=== PATIENT | female | born 1985 | race Caucasian/White ===

== ENCOUNTER 2017-04-07 19:38 | Emergency (ER) | payer BC, OTHER ==
[2017-04-07 19:44] VITALS: RESP 18
--- NOTE | 2017-04-07 20:09 | ED ---
General Adult HPI - General Chief complaint: Abdominal Pain Stated complaint: and cramping 14wks Time Seen by Provider: 04/07/17 19:51 Source: patient, RN notes reviewed Mode of arrival: ambulatory Limitations: no limitations - History of Present Illness Initial comments: 32-year-old female presents to the emergency department with a chief complaint of abdominal cramping and . Patient is . She states that she is always had a little bit of some lower pelvic pain in this but now she states she's had more constant pain sometimes it stabbing sometimes it's cramping. Discharge or bleeding with this pain. She denies any back pain with this. She denies any nausea or vomiting. She had ultrasound at 7 weeks that showed normal progression. They were concerned due to her continued cramping and pain so she thought that she should be seen.Patient denies any recent fever , chills, shortness of breath, chest pain, back pain, nausea vomiting, numbness or tingling, dysuria or hematuria, constipation or diarrhea, headaches or visual changes, or any other current symptoms. - Related Data Home Medications Medication Instructions Recorded Confirmed Nitrofurantoin Monohyd/M-Cryst 100 mg PO Q12HR 04/07/17 04/07/17 [Macrobid] Pedi Multivit No.25/Folic Acid 1 tab PO DAILY 04/07/17 04/07/17 [Flintstones Multivit Chew Tab] Allergies Allergy/AdvReac Type Severity Reaction Status Date / Time codeine AdvReac Nausea & Verified 04/07/17 20:20 Vomiting Review of Systems ROS Statement: Those systems with pertinent positive or pertinent negative responses have been documented in the HPI. ROS Other: All systems not noted in ROS Statement are negative. Past Medical History Past Medical History: No Reported History History of Any Multi-Drug Resistant Organisms: None Reported, MRSA Date of last positivie culture/infection: 2013 MDRO Source:: nose Past Surgical History: Appendectomy Additional Past Surgical History / Comment(s): D&C Past Anesthesia/Blood Transfusion Reactions: No Reported Reaction Past Psychological History: No Psychological Hx Reported Smoking Status: Never smoker Past Alcohol Use History: None Reported Past Drug Use History: None Reported - Past Family History Mother Additional Family Medical History / Comment(s): Lupus General Exam - General Exam Comments Initial Comments: General: The patient is awake and alert, in no distress, and does not appear acutely ill. Eye: Pupils are equal, round and reactive to light. Ears, nose, mouth and throat: There are moist mucous membranes. Neck: The neck is supple, there is no tenderness. Cardiovascular: There is a regular rate and rhythm. No murmur, rub or gallop is appreciated. Respiratory: Lungs are clear to auscultation, respirations are non-labored, breath sounds are equal. No wheezes, stridor, rales, or rhonchi. Gastrointestinal: Soft, non-distended, non-tender abdomen without masses or organomegaly noted. There is no rebound or guarding present. No CVA tenderness. Bowel sounds are unremarkable. Back: There is no tenderness to palpation in the midline. There is no obvious deformity. No rashes noted. Musculoskeletal: Normal ROM, no tenderness, There is no pedal edema. There is no calf tenderness or swelling. Sensation intact. Pulses equal bilaterally 2+. Neurological: CN II-XII intact, There are no obvious motor or sensory deficits. Coordination appears grossly intact. Speech is normal. Skin: Skin is warm and dry and no rashes or lesions are noted. Psychiatric: Cooperative, appropriate mood & affect, normal judgment. Limitations: no limitations Course Vital Signs 04/07/17 19:40 Temperature 97.2 F L Pulse Rate 91 Respiratory 18 Rate Blood Pressure 154/72 O2 Sat by Pulse 100 Oximetry Medical Decision Making - Medical Decision Making 32-year-old female presents to the emergency Department chief complaint of abdominal cramping and . At this time patient's lab work and ultrasound results have been reviewed. We discussed the pelvic she states she' ll follow-up with her [facility] for this. At this time there does appear to be a normal ultrasound. We did discuss return parameters we did discuss possible outcomes. We did discuss all questions. Patient stated that she understood and she is in agreement this plan. All questions have been answered. She will be discharged. - Lab Data Result diagrams: 04/07/17 20:20 04/07/17 20:20 Lab Results 04/07/17 04/07/17 04/07/17 Range/Units 20:20 20:20 20:20 WBC 10.1 (3.8-10.6) k/uL RBC 3.61 L (3.80-5.40) m/uL Hgb 11.1 L (11.4-16.0) gm/dL Hct 32.5 L (34.0-46.0) % MCV 90.0 (80.0-100.0) fL MCH 30.7 (25.0-35.0) pg MCHC 34.1 (31.0-37.0) g/dL RDW 13.4 (11.5-15.5) % Plt Count 372 (150-450) k/uL Neutrophils % 66 % Lymphocytes % 24 % Monocytes % 6 % Eosinophils % 2 % Basophils % 0 % Neutrophils # 6.7 (1.3-7.7) k/uL Lymphocytes # 2.5 (1.0-4.8) k/uL Monocytes # 0.6 (0-1.0) k/uL Eosinophils # 0.2 (0-0.7) k/uL Basophils # 0.0 (0-0.2) k/uL Sodium 135 L (137-145) mmol/L Potassium 4.0 (3.5-5.1) mmol/L Chloride 103 (98-107) mmol/L Carbon Dioxide 24 (22-30) mmol/L Anion Gap 8 mmol/L BUN 14 (7-17) mg/dL Creatinine 0.76 (0.52-1.04) mg/dL Est GFR (MDRD) Af Amer >60 (>60 ml/min/1.73 sqM) Est GFR (MDRD) Non-Af >60 (>60 ml/min/1.73 sqM) Glucose 89 (74-99) mg/dL Calcium 9.3 (8.4-10.2) mg/dL Total Bilirubin 0.1 L (0.2-1.3) mg/dL AST 18 (14-36) U/L ALT 25 (9-52) U/L Alkaline Phosphatase 57 (38-126) U/L Total Protein 6.5 (6.3-8.2) g/dL Albumin 3.4 L (3.5-5.0) g/dL HCG, Quant 77997.9 mIU/mL Urine Color Urine Appearance (Clear) Urine pH (5.0-8.0) Ur Specific [place] (1.001-1.035) Urine Protein (Negative) Urine Glucose (UA) (Negative) Urine Ketones (Negative) Urine Blood (Negative) Urine Nitrite (Negative) Urine Bilirubin (Negative) Urine Urobilinogen (<2.0) mg/dL Ur Leukocyte Esterase (Negative) Urine RBC (0-5) /hpf Urine WBC (0-5) /hpf Ur Squamous Epith Cells (0-4) /hpf Urine Mucus (None) /hpf Blood Type A Positive Blood Type Recheck No 04/07/17 Range/Units 20:20 WBC (3.8-10.6) k/uL RBC (3.80-5.40) m/uL Hgb (11.4-16.0) gm/dL Hct (34.0-46.0) % MCV (80.0-100.0) fL MCH (25.0-35.0) pg MCHC (31.0-37.0) g/dL RDW (11.5-15.5) % Plt Count (150-450) k/uL Neutrophils % % Lymphocytes % % Monocytes % % Eosinophils % % Basophils % % Neutrophils # (1.3-7.7) k/uL Lymphocytes # (1.0-4.8) k/uL Monocytes # (0-1.0) k/uL Eosinophils # (0-0.7) k/uL Basophils # (0-0.2) k/uL Sodium (137-145) mmol/L Potassium (3.5-5.1) mmol/L Chloride (98-107) mmol/L Carbon Dioxide (22-30) mmol/L Anion Gap mmol/L BUN (7-17) mg/dL Creatinine (0.52-1.04) mg/dL Est GFR (MDRD) Af Amer (>60 ml/min/1.73 sqM) Est GFR (MDRD) Non-Af (>60 ml/min/1.73 sqM) Glucose (74-99) mg/dL Calcium (8.4-10.2) mg/dL Total Bilirubin (0.2-1.3) mg/dL AST (14-36) U/L ALT (9-52) U/L Alkaline Phosphatase (38-126) U/L Total Protein (6.3-8.2) g/dL Albumin (3.5-5.0) g/dL HCG, Quant mIU/mL Urine Color Yellow Urine Appearance Cloudy H (Clear) Urine pH 5.5 (5.0-8.0) Ur Specific [place] 1.031 (1.001-1.035) Urine Protein Trace H (Negative) Urine Glucose (UA) Negative (Negative) Urine Ketones Negative (Negative) Urine Blood Negative (Negative) Urine Nitrite Negative (Negative) Urine Bilirubin Negative (Negative) Urine Urobilinogen <2.0 (<2.0) mg/dL Ur Leukocyte Esterase Negative (Negative) Urine RBC 1 (0-5) /hpf Urine WBC 3 (0-5) /hpf Ur Squamous Epith Cells 7 H (0-4) /hpf Urine Mucus Few H (None) /hpf Blood Type Blood Type Recheck - Radiology Data Radiology results: report reviewed, image reviewed Disposition Clinical Impression: Abdominal pain affecting Disposition: HOME SELF-CARE Condition: Stable Instructions: Abdominal Pain in (ED) Additional Instructions: Please use medication as discussed. Please follow up with family doctor if symptoms have not improved over the next two days. Please return to the emergency room if your symptoms increase or worsen or for any other concerns. Referrals: Kiara Burrows MD [Primary Care Provider] - 1-2 days Time of Disposition: 21:57
[2017-04-07 20:30] LABS: Basophils % (A) 0 %; Eosinophils # (A) 0.2 k/uL (0-0.7); Eosinophils % (A) 2 %; HCT 32.5 % (34.0-46.0); HGB 11.1 gm/dL (11.4-16.0); Lymphocytes # (A) 2.5 k/uL (1.0-4.8); Lymphocytes % (A) 24 %; MCH 30.7 pg (25.0-35.0); MCHC 34.1 g/dL (31.0-37.0); Mean Platelet Volume 7.3; Monocytes # (A) 0.6 k/uL (0-1.0); Monocytes % (A) 6 %; Neutrophils # (A) 6.7 k/uL (1.3-7.7); Neutrophils % (A) 66 %; Platelet Count 372 k/uL (150-450); RBC 3.61 m/uL (3.80-5.40); RDW 13.4 % (11.5-15.5); WBC 10.1 k/uL (3.8-10.6)
[2017-04-07 20:34] LABS: Appearance,Urine Cloudy (Clear); Bilirubin,Urine Negative (Negative); Blood,Urine Negative (Negative); Color,Urine Yellow; Glucose,Urine (UA) Negative (Negative); Ketones,Urine Negative (Negative); Leukocyte Esterase,Urine Negative (Negative); Mucus,Urine Few /hpf; Nitrite,Urine Negative (Negative); PH, Urine 5.5 (5.0-8.0); Protein,Urine Trace (Negative); RBC,Urine 1 /hpf (0-5); Specific Gravity,Urine 1.031 (1.001-1.035); Squamous Epithelial Cell,Urine 7 /hpf (0-4); Urobilinogen,Urine <2.0 mg/dL (<2.0); WBC,Urine 3 /hpf (0-5)
[2017-04-07 20:39] LABS: ALT 25 U/L (9-52); AST 18 U/L (14-36); Albumin 3.4 g/dL (3.5-5.0); Alkaline Phosphatase 57 U/L (38-126); Anion Gap 8 mmol/L; Blood Urea Nitrogen 14 mg/dL (7-17); Calcium 9.3 mg/dL (8.4-10.2); Carbon Dioxide 24 mmol/L (22-30); Chloride 103 mmol/L (98-107); Glucose 89 mg/dL (74-99); Sodium 135 mmol/L (137-145); Total Bilirubin 0.1 mg/dL (0.2-1.3); Total Protein 6.5 g/dL (6.3-8.2)
[2017-04-07 21:21] LABS: HCG,Quantitative Serum 35491.9 mIU/mL
--- NOTE | 2017-04-07 21:49 | US ---
EXAMINATION TYPE: US OB >= 14 wk fetus DATE OF EXAM: 04/07/2017 COMPARISON: None CLINICAL HISTORY: PainPelvic cramping x few days, 4, para 1, miscarriage 2, obese patient. TECHNIQUE: Transabdominal (TA) GESTATIONAL AGE / DATING Physician Established: (14 weeks/3 days) EDC: 10/03/2017 Dates by LMP: (14 weeks/3 days) EDC: 10/03/2017 Dates by First Scan: No previous here Dates by Current Scan: (15 weeks/3 days) EDC: 09/26/2017 SURVEY IUP: Single PLACENTA: Posterior PREVIA: Low Lying: tip of placenta 1.4cm from internal cervical os MARQUISE: 11.9 cm Normal CERVICAL LENGTH (transabdominal: norm > 3.0cm): 3.6 cm BIOMETRY PRESENTATION: Breech LIE: Transverse with head maternal Left BPD: 3.0 cm 15 weeks / 3 days HC: 10.9 cm 15 weeks / 2 days AC: 9.5 cm 15 weeks / 4 days FL: 1.7 cm 14 weeks / 6 days ESTIMATED WEIGHT IN GRAMS: 119 grams ESTIMATED WEIGHT IN LBS/OZ: 0 lbs. 4 oz. WEIGHT PERCENTAGE BASED ON ESTABLISHED DATES: 90% HC/AC: 1.14 Normal FL/AC: 17.41 HEART RATE: 151 bpm RHYTHM: Normal MATERNAL WALL MEASUREMENT: 4.1 cm from skin to anterior uterine wall (if exam limited due to body hab itus). IMPRESSION: VIABLE SINGLE IUP MEASURING 15 WEEKS 3 DAYS WITH A HEART RATE OF 151BPM AND AN ESTIMATED DELIVERY GERDA E OF 09/26/2017.
[2017-04-07 22:06] VITALS: BP 115/57; PULSE 89; TEMP 97.1
== END 2017-04-07 22:06 | disposition home or self-care (01) ==
LOC: EC 19:38
DX: O26.891 Other specified pregnancy related conditions, first trimester (principal); R10.2 Pelvic and perineal pain; Z3A.01 Less than 8 weeks gestation of pregnancy; Z86.14 Personal history of Methicillin resistant Staphylococcus aureus infection; Z79.899 Other long term (current) drug therapy; Z88.5 Allergy status to narcotic agent; Z98.890 Other specified postprocedural states
CPT/HCPCS: 36415; 76805; 80053; 81001; 84702; 85025; 86900; 86901; 87086; 99284

== ENCOUNTER 2017-08-26 07:52 | Outpatient (CLI) | payer BC, OTHER ==
[2017-08-26 09:06] VITALS: BP 138/71; PULSE 80; RESP 16; TEMP 97.9
--- NOTE | 2017-10-10 12:15 | P.MSEPDOC ---
Presenting Problems - Arrival Data Date of Arrival on Unit: 08/26/17 Time of Arrival on Unit: 08:00 Mode of Transport: Wheelchair - Complaint OB-Reason for Admission/Chief Complaint: Visual Disturbances, Pain Comment: dizzy at work this am. also having back pain that comes and goes. pain scale=3-4. Medical History - Information : 4 Para: 1 Term: 1 : 0 Abortions: Spontaneous or Elective: 2 Number of Living Children: 1 - Gestational Age Gestational Age by ARIADNE (wks/days): 35 Weeks and 4 Days Review of Systems - Review of Systems Constitutional: No problems Breast: No problems ENT: No problems Cardiovascular: No problems Respiratory: No problems Gastrointestinal: No problems Genitourinary: No problems Musculoskeletal: No problems Neurological: No problems Skin: No problems Comment: repeat ceserean section planned Vital Signs - Temperature Temperature: 97.9 F Temperature Source: Oral - Pulse Right Radial Pulse Rate: 80 Pulse Assessment Method: Automatic Cuff - Respirations Respiratory Rate: 16 Oxygen Delivery Method: Room Air O2 Sat by Pulse Oximetry: 99 - Blood Pressure Right Arm Blood Pressure: 138/71 Blood Pressure Mean: 93 Blood Pressure Source: Automatic Cuff Medical Screen Scoring (Pre) - Cervical Exam Dilation: 0 cm = 0 Membranes: Intact - Uterine Contractions Frequency: > 5 minutes apart = 1 Duration: > 40 seconds = 2 Intensity: N/A - Maternal Vital Signs Maternal Temperature: N/A Maternal Blood Pressure: N/A Signs of Preeclampsia: N/A Maternal Respirations: N/A - Pain Assessment Pain Location and Character: Back Pain Scale Used: Numeric (1 - 10) Pain Intensity: 4 Pain Description: Aching Pain Frequency: Intermittent Pain Duration Units: Days Pain Behavior: Vocalization Pain Aggravating Factors: Activity - Maternal Trauma Maternal Trauma: N/A - Assessment Heart Rate - NICHD Category: Category I (Normal) = 0 NST: Reactive Position: N/A Station: N/A - Total Score Total Score (Pre): 3 - Level of Risk Level of Risk: Low (0-5) Physician Notification (Pre) - Physician Notified Physician Notified Date: 08/26/17 Physician Notified Time: 08:45 Physician/Practitioner Notifed:: amie Spoke With: amie New Order Received: Yes (discharge instructions) - Notification Comment Comment: home to rest. drink lots of fluids, pelvic rest and off work today. may return if feeling better tomorrow. keep next scheduled appt with dr castillo on monday Disposition - Disposition OB Disposition: Discharge to home Discharge Date: 08/26/17 Discharge Time: 08:57 I agree with the RN Medical Screening Exam: Yes Risk & Benefit of care provided described in d/c instruction: Yes Diagnosis: RELATED CONDITIONS, UNSPECIFIED, THIRD TRIMESTER
== END 2017-08-26 08:57 | disposition home or self-care (01) ==
LOC: FBPOP 07:52
PROVIDERS: ATTEND Obstetrics & Gynecology
DX: O26.93 Pregnancy related conditions, unspecified, third trimester (principal); Z3A.35 35 weeks gestation of pregnancy
CPT/HCPCS: 59025; 99213

== ENCOUNTER 2017-09-06 12:07 | Outpatient (CLI) | payer BC, OTHER ==
[2017-09-06 13:17] VITALS: BP 138/70; PULSE 92; RESP 18; TEMP 96.9
--- NOTE | 2017-09-08 10:06 | P.MSEPDOC ---
Presenting Problems - Arrival Data Date of Arrival on Unit: 09/06/17 Time of Arrival on Unit: 12:10 Mode of Transport: Ambulatory - Complaint OB-Reason for Admission/Chief Complaint: Possible Onset of Labor Comment: 36 1/7 weeks. irreg contracctions/irritability noted on fm. abd soft to palp. denies leaking or bleeding or show. states some diacharge. 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 encouraged fluid intake and staying out of heat and in air cond. if poss. sched to work tomorrow and sat as her last days and then off for two weeks before sched r c/s with tl on 09/26/17 Medical History - Information : 4 Para: 1 Term: 1 : 0 Abortions: Spontaneous or Elective: 2 Number of Living Children: 1 - Gestational Age Gestational Age by ARIADNE (wks/days): 37 Weeks and 1 Days - History Complications: Prior Review of Systems - Review of Systems Constitutional: No problems Breast: No problems ENT: No problems Cardiovascular: No problems Respiratory: No problems Gastrointestinal: No problems Genitourinary: No problems Musculoskeletal: No problems Neurological: No problems Skin: No problems Vital Signs - Temperature Temperature: 96.9 F Temperature Source: Temporal Artery Scan - Pulse Right Brachial Pulse Rate: 92 Pulse Assessment Method: Automatic Cuff - Respirations Respiratory Rate: 18 Oxygen Delivery Method: Room Air O2 Sat by Pulse Oximetry: 98 - Blood Pressure Right Arm Blood Pressure: 138/70 Blood Pressure Mean: 92 Medical Screen Scoring (Pre) - Cervical Exam Dilation: 0 cm = 0 Membranes: Intact - Uterine Contractions Frequency: Scheduled / = 6 - Maternal Vital Signs Maternal Temperature: N/A Maternal Blood Pressure: N/A Signs of Preeclampsia: N/A Maternal Respirations: N/A - Pain Assessment Pain Location and Character: Lower, Abdomen Pain Scale Used: Numeric (1 - 10) Pain Intensity: 0 Pain Description: *Acute Pain Frequency: Occasional Pain Duration: 2 Pain Duration Units: Hours Pain Behavior: None Exhibited, Vocalization Pain Aggravating Factors: Activity, Contractions Non-Pharmacological Interventions: Darkened Room - Maternal Trauma Maternal Trauma: N/A - Assessment Baseline FHR: 140 Heart Rate - NICHD Category: Category I (Normal) = 0 NST: Reactive Position: N/A Station: N/A - Total Score Total Score (Pre): 6 - Level of Risk Level of Risk: Medium (6-9) Physician Notification (Pre) - Physician Notified Physician Notified Date: 09/06/17 Physician Notified Time: 12:40 Physician/Practitioner Notifed:: yes Spoke With: anna New Order Received: No - Notification Comment Comment: disch home to keep 1445 appt today. Disposition - Disposition OB Disposition: Discharge to home Discharge Date: 09/06/17 Discharge Time: 12:50 I agree with the RN Medical Screening Exam: Yes Risk & Benefit of care provided described in d/c instruction: Yes Diagnosis: FALSE LABOR BEFORE 37 COMPLETED WEEKS OF GEST, THIRD TRI
== END 2017-09-06 12:50 | disposition home or self-care (01) ==
LOC: FBPOP 12:07
PROVIDERS: ATTEND Obstetrics & Gynecology
DX: O47.1 False labor at or after 37 completed weeks of gestation (principal); Z3A.37 37 weeks gestation of pregnancy
CPT/HCPCS: 59025; 99213

== ENCOUNTER 2017-09-26 09:07 | Inpatient (IN) | payer BC, OTHER ==
[2017-09-26] MEDS ORDERED: ceFAZolin 3 GM in SODIUM CHLORIDE 0.9% 100 ML IVPB ONE (09:58)
[2017-09-26] MEDS ORDERED: CITRIC ACID-SODIUM CITRATE 15 ML CUP PO ONE (09:58)
[2017-09-26 10:12] VITALS: BMI 54.8
[2017-09-26] MEDS: LACTATED RINGERS 1,000 ML IV SCH ×2 (10:14→18:47)
[2017-09-26 10:34] LABS: Basophils % (A) 0 %; Eosinophils # (A) 0.1 k/uL (0-0.7); Eosinophils % (A) 1 %; HGB 11.5 gm/dL (11.4-16.0); Lymphocytes # (A) 2.4 k/uL (1.0-4.8); Lymphocytes % (A) 23 %; MCH 30.6 pg (25.0-35.0); MCHC 33.9 g/dL (31.0-37.0); MCV 90.1 fL (80.0-100.0); Mean Platelet Volume 7.5; Monocytes # (A) 0.6 k/uL (0-1.0); Monocytes % (A) 5 %; Neutrophils # (A) 7.4 k/uL (1.3-7.7); Neutrophils % (A) 69 %; Platelet Count 313 k/uL (150-450); RBC 3.78 m/uL (3.80-5.40); RDW 13.7 % (11.5-15.5); WBC 10.6 k/uL (3.8-10.6)
[2017-09-26] MEDS ORDERED: WATER FOR INJECTION, STERILE 10 ML VIAL IV ONE (12:17)
[2017-09-26] MEDS ORDERED: NALBUPHINE 10 MG/ML VIAL (10ML MDV) ONE (12:17)
[2017-09-26] MEDS ORDERED: ONDANSETRON 4 MG/2 ML VIAL ONE (12:17)
[2017-09-26] MEDS ORDERED: KETOROLAC 30 MG/ML 1 ML VIAL ONE (12:17)
[2017-09-26] MEDS ORDERED: MORPHINE SULFATE (PF) 0.3 MG/0.3 ML SYR ONE (12:17)
[2017-09-26] MEDS ORDERED: ePHEDrine SULFATE/0.9% NACL/PF 50 MG/5 ML SYRINGE IV ONE (12:17)
[2017-09-26] MEDS ORDERED: OXYTOCIN 10 UNIT/ML 1 ML VIAL ONE (12:17)
[2017-09-26] MEDS ORDERED: NALOXONE 0.4 MG/ML 1 ML VIAL IV PRN (13:09)
[2017-09-26] MEDS ORDERED: ZOLPIDEM 5 MG TAB PO PRN (13:09)
[2017-09-26] MEDS ORDERED: HYDROcodone/APAP 7.5-325MG 1 EACH TAB PO PRN (13:09)
[2017-09-26] MEDS ORDERED: ONDANSETRON 4 MG/2 ML VIAL IVP PRN (13:09)
[2017-09-26] MEDS ORDERED: METOCLOPRAMIDE 5 MG/ML 2 ML VIAL IVP PRN (13:09)
[2017-09-26] MEDS ORDERED: KETOROLAC 30 MG/ML 1 ML VIAL IVP PRN (13:09)
[2017-09-26] MEDS ORDERED: HYDROcodone/APAP 5-325MG 1 EACH TAB PO PRN (13:09)
[2017-09-26] MEDS ORDERED: SIMETHICONE 80 MG CHEWABLE PO PRN (13:09)
[2017-09-26] MEDS ORDERED: OXYTOCIN 20 UNITS/1000 ML NS 1,000 ML IV SCH (13:15)
--- NOTE | 2017-09-26 13:17 | P.HPOB ---
History of Present Illness H&P Date: 09/26/17 Chief Complaint: 39-0/7 weeks, previous section, undesired fertility The patient is a 32-year-old 4 para 1021 admitted at 39-0/7 weeks as established by last menstrual period and confirmed by seven-week ultrasound. She is admitted for repeat low transverse section with intraoperative bilateral tubal occlusion using Filshie clips. She has signed consent to this effect in the office. Her has been essentially uncomplicated though she is morbidly obese. During the , the fetus was noted to have bilateral full renal pelves which resolved during the , a finding consistent with a male baby. Group B strep status is negative. Obstetrical history: 4 para 1021 with 1 previous delivery for nonreassuring heart tones. Current statistics are listed in history present illness. EDC of 10/03/2017 was established by last menstrual period and confirmed by seven-week ultrasound. Laboratory workup demonstrates a blood type of A+ with a negative antibody screen. Rubella status is immune. All other laboratory workup was within normal limits. Early Glucola was normal as was second trimester Glucola. Group B strep status is negative. Gynecologic history: Unremarkable with no history of any infections to include STDs. Review of Systems Review of systems is confined to history of present illness. Past Medical History Past Medical History: No Reported History History of Any Multi-Drug Resistant Organisms: MRSA Date of last positivie culture/infection: 2013 MDRO Source:: nose Past Surgical History: Appendectomy, Section, Cholecystectomy Additional Past Surgical History / Comment(s): D&C Past Anesthesia/Blood Transfusion Reactions: Postoperative Nausea & Vomiting ( PONV) Past Psychological History: No Psychological Hx Reported Smoking Status: Never smoker Past Alcohol Use History: None Reported Past Drug Use History: None Reported - Past Family History Mother Additional Family Medical History / Comment(s): Lupus Medications and Allergies Home Medications Medication Instructions Recorded Confirmed Type Pnv No.95/Ferrous Fum/Folic AC 1 each PO DAILY 09/22/17 09/22/17 History [ Multivitamin Tablet] Allergies Allergy/AdvReac Type Severity Reaction Status Date / Time codeine Allergy Nausea & Verified 09/22/17 15:41 Vomiting diphenhydramine Allergy Nausea & Verified 09/22/17 15:40 [From Benadryl] Vomiting & panic attacks all pain medicine AdvReac Nausea & Uncoded 09/22/17 15:39 Vomiting Exam Vital Signs Temp Pulse Resp BP Pulse Ox 09/26/17 09:57 97.2 F L 69 18 136/81 98 Intake and Output 09/25/17 09/26/17 09/26/17 22:59 06:59 14:59 Other: Weight 158.757 kg In general, this is a well-developed, morbidly obese white female in no acute distress. Her heart has a regular rhythm and rate without murmur. Her lungs are clear to auscultation bilaterally in all harrison. Her abdomen is gravid, nondistended, has normal active bowel sounds, is soft, nontender, and without any palpable masses aside from uterine fundus. Her extremities are without any cyanosis, clubbing, or edema and are nontender to palpation bilaterally. Digital cervical examination is deferred. Results Result Diagrams: 09/26/17 10:15 Abnormal Lab Results - Last 24 Hours (Table) 09/26/17 Range/Units 10:15 RBC 3.78 L (3.80-5.40) m/uL Assessment and Plan (1) Family planning Current Visit: Yes Status: Acute Code(s): Z30.09 - ENCOUNTER FOR OTH GENERAL CNSL AND ADVICE ON CONTRACEPTION SNOMED Code(s): 271022595 (2) Previous section Current Visit: Yes Status: Acute Code(s): Z98.891 - HISTORY OF UTERINE SCAR FROM PREVIOUS SURGERY SNOMED Code(s): 597141443 Plan: The patient is admitted for repeat low transverse section with intraoperative bilateral tubal occlusion using Filshie clips. The risks and complications of the procedure as well as the permanent nature of tubal ligation and alternatives which are reversible in nature were discussed and the patient has understood and agreed to proceed with the procedure as outlined above.
--- NOTE | 2017-09-26 13:22 | P.OP ---
Date of Procedure: 09/26/17 Preoperative Diagnosis: #1. 39-0/7 weeks, previous section #2. Undesired fertility Postoperative Diagnosis: Same Procedure(s) Performed: #1. Repeat low transverse section #2. Intraoperative bilateral tubal occlusion with Filshie clips Anesthesia: spinal Surgeon: Jovanni Andrews Watch Repair Person #1: Krystin Da Silva Estimated Blood Loss (ml): 200 IV fluids (ml): 150 Urine output (ml): 1,000 Pathology: none sent Condition: stable Disposition: floor Operative Findings: The patient was taken to the operating room where she was delivered of a viable 9 lbs. 5 oz. baby boy with Apgars of 9 at 1 minute and 9 at 5 minutes. The placenta was delivered manually, intact, and grossly normal with a grossly normal three-vessel cord. The uterus, tubes, and ovaries were entirely normal to inspection. There was minimal scarring at any level of the abdominal wall and uterus. Description of Procedure: The patient was prepped and draped in usual fashion after spinal anesthesia was administered by the anesthesiologist. A Pfannenstiel incision was made through pre-existing scar and extended into the abdominal cavity without difficulty. The bladder was noted to be distal to the site of the intended incision was left intact without reflecting the peritoneum. A 2 cm incision was made in the transverse plane of the lower uterine segment to enter the uterus at which time copious amounts of clear fluid was noted. The incision was extended in both directions using bandage scissors. The head was delivered up and through the incision where the nose and mouth were thoroughly suctioned with bulb suction. Remainder of the infant was delivered onto the field where the cord was doubly clamped, cut, and the passed for resuscitative measures with weight and Apgars as noted above. A segment of cord was then doubly clamped, cut, and set aside should cord gases become necessary. The placenta was delivered manually and intact as above. The uterus was exteriorized and the interior cavity of uterus swept of any remaining placental or membranous fragments. The margins of the uterine incision were grasped with Marin clamps and closed in a single layer of running locking 0 chromic catgut from margin to margin. 2 small points of bleeding were made hemostatic with the Bovie. The posterior cul-de-sac was suctioned using a guard. After reaffirming at the patient desired tubal occlusion with Filshie clips, a Filshie clip was placed across the isthmic portion of the fallopian tube approximately 2-3 cm from the cornu on each side where it was firmly affixed. The uterus was replaced within the abdominal cavity and the gutters swept of any remaining blood, fluid, or clot. The incision was reexamined and any small points of bleeding made hemostatic with the Bovie. Hemostasis appeared to be excellent. The parietal peritoneum was loosely reapproximated in the layer of muscles examined and made hemostatic with the Bovie. The fascia was closed with 2 stitches of running 0 Vicryl proceeding from lateral margins to the midpoint. The subcutaneous tissues were irrigated, made hemostatic with the Bovie, and reapproximated with a running stitch of 30 plain catgut. The skin was reapproximated with a running subcuticular stitch of 4-0 Vicryl proceeding from margin to margin followed by half-inch Steri-Strips placed with Mastisol. Estimated blood loss for the entire case was approximately 200 mL. There were no complications. All sponge, instrument, and needle counts were correct. Both mother and are resting comfortably in recovery.
[2017-09-26] MEDS ORDERED: DEXAMETHASONE SOD PHOSPHATE 10 MG/ML 1 ML VIAL IV ONE (17:17)
[2017-09-26] MEDS ORDERED: SCOPOLAMINE 1.5MG/72HR PATCH TRANSDERM ONE (17:17)
[2017-09-27] MEDS: SENNOSIDES-DOCUSATE SODIUM 1 EACH TAB PO SCH ×3 (05:52→22:04)
--- NOTE | 2017-09-27 06:42 | P.PN ---
Progress Note - Text Progress Note Date: 09/27/17 Postoperative day 1 status post section under spinal anesthesia and intrathecal Duramorph for postoperative analgesia.The patient is doing well, there is mild generalized skin itching. There are no other anesthesia related complications. Further management as per the patient primary team.
[2017-09-27 09:08] LABS: Basophils % (A) 0 %; Eosinophils % (A) 0 %; HCT 29.7 % (34.0-46.0); Lymphocytes % (A) 14 %; MCH 30.1 pg (25.0-35.0); MCHC 32.7 g/dL (31.0-37.0); MCV 92.2 fL (80.0-100.0); Mean Platelet Volume 7.4; Monocytes # (A) 0.6 k/uL (0-1.0); Monocytes % (A) 4 %; Neutrophils # (A) 11.6 k/uL (1.3-7.7); Neutrophils % (A) 81 %; Platelet Count 314 k/uL (150-450); RBC 3.22 m/uL (3.80-5.40); RDW 14.2 % (11.5-15.5); WBC 14.3 k/uL (3.8-10.6)
[2017-09-27 09:10] LABS: HGB 9.7 gm/dL (11.4-16.0)
--- NOTE | 2017-09-27 10:30 | P.PNOBGPC ---
Subjective - Subjective Interval history: The patient had significant nausea postoperatively which has resolved overnight. Patient reports: Reports appetite normal, Reports voiding normally, Reports pain well controlled, Reports ambulating normally : doing well Objective - Vital Signs Latest vital signs: Vital Signs Temp Pulse Resp BP Pulse Ox 09/27/17 07:57 98.7 F 65 16 122/73 09/27/17 04:00 97.9 F 94 16 136/72 09/26/17 20:00 97.5 F L 73 17 134/76 09/26/17 16:00 98.7 F 74 16 140/68 09/26/17 15:10 98.4 F 85 16 135/73 09/26/17 14:40 68 16 134/70 09/26/17 14:10 98.4 F 88 16 127/94 09/26/17 13:55 98.2 F 64 16 135/72 09/26/17 13:40 97.9 F 85 16 141/82 09/26/17 13:25 81 16 132/77 09/26/17 13:10 97.9 F 18 141/79 99 Intake and Output 09/26/17 09/27/17 09/27/17 22:59 06:59 14:59 Intake Total 700 Output Total 1250 200 Balance -550 -200 Intake: Intake, IV Titration 500 Amount Lactated Ringers 1,000 ml 500 @ 125 mls/hr IV .[facility] Rx#:[id number] Oral 200 Output: Urine 550 200 Emesis 300 Estimated Blood Loss 400 - Exam Extremities: Present: normal Abdomen: Present: normal appearance (Morbidly obese), soft. Absent: distention , tenderness Incision: Present: normal, dry, intact Uterus: Present: normal, firm (Uterine fundus as tonic and nontender around the umbilicus.) - Labs Labs: Abnormal Lab Results - Last 24 Hours (Table) 09/26/17 09/27/17 Range/Units 10:15 07:54 WBC 14.3 H (3.8-10.6) k/uL RBC 3.78 L 3.22 L (3.80-5.40) m/uL Hgb 9.7 L D (11.4-16.0) gm/dL Hct 29.7 L (34.0-46.0) % Neutrophils # 11.6 H (1.3-7.7) k/uL Assessment and Plan (1) Family planning Current Visit: Yes Status: Acute Code(s): Z30.09 - ENCOUNTER FOR OTH GENERAL CNSL AND ADVICE ON CONTRACEPTION SNOMED Code(s): 020943755 (2) Previous section Current Visit: Yes Status: Acute Code(s): Z98.891 - HISTORY OF UTERINE SCAR FROM PREVIOUS SURGERY SNOMED Code(s): 599589686 (3) delivery delivered Current Visit: Yes Status: Acute Code(s): O82 - ENCOUNTER FOR DELIVERY WITHOUT INDICATION SNOMED Code(s): 366907769 Plan: The patient is doing well on postoperative day #1. She is tolerating regular diet this morning. She is up and ambulating. I have encouraged her to ambulate frequently in the hallways. The infant has been taken to the special care nursery with an apparent diagnosis of pneumonia and the intention of 7 days of antibiotics. As result, the patient will continue to have routine postoperative care and likely be discharged home on postoperative day number 4.
[2017-09-27] MEDS: IBUPROFEN 600 MG TAB PO PRN (11:16)
[2017-09-27] MEDS: LACTATED RINGERS 1,000 ML IV SCH ×6 (22:02→22:06)
[2017-09-28] MEDS: IBUPROFEN 600 MG TAB PO PRN ×2 (04:47→17:32)
[2017-09-28] MEDS: ACETAMINOPHEN TAB 325 MG TAB PO PRN ×2 (08:22→19:07)
[2017-09-28] MEDS: SENNOSIDES-DOCUSATE SODIUM 1 EACH TAB PO SCH ×2 (08:22→20:13)
--- NOTE | 2017-09-28 08:23 | P.PNOBGPC ---
Subjective - Subjective Principal diagnosis: POD 2 RCS TL Interval history: Patient is doing well postoperatively. She states she is ambulating and voiding without difficulty. She notes her lochia to be minimal in nature. Her pain is controlled with oral Motrin and Tylenol. She is bottle feeding. Patient reports: Reports appetite normal, Reports voiding normally, Reports pain well controlled, Reports ambulating normally [place]: bottle feeding (In the nursery receiving IV antibiotics) Objective - Vital Signs Latest vital signs: Vital Signs Temp Pulse Resp BP Pulse Ox 09/27/17 23:34 97.6 F 68 16 111/58 100 09/27/17 16:00 98.4 F 73 16 119/65 09/27/17 12:00 98.6 F 74 16 117/56 - Exam Extremities: Present: normal Abdomen: Present: normal appearance, soft Incision: Present: normal, dry, intact Uterus: Present: normal, firm - Labs Labs: Abnormal Lab Results - Last 24 Hours (Table) 09/27/17 Range/Units 07:54 WBC 14.3 H (3.8-10.6) k/uL RBC 3.22 L (3.80-5.40) m/uL Hgb 9.7 L D (11.4-16.0) gm/dL Hct 29.7 L (34.0-46.0) % Neutrophils # 11.6 H (1.3-7.7) k/uL Assessment and Plan (1) delivery delivered Current Visit: Yes Status: Acute Code(s): O82 - ENCOUNTER FOR DELIVERY WITHOUT INDICATION SNOMED Code(s): 637101735 (2) Family planning Current Visit: Yes Status: Acute Code(s): Z30.09 - ENCOUNTER FOR OT GENERAL CNSL AND ADVICE ON CONTRACEPTION SNOMED Code(s): 725543311 (3) Obesity Current Visit: Yes Status: Acute Code(s): E66.9 - OBESITY, UNSPECIFIED SNOMED Code(s): 017589334 (4) Previous section Current Visit: Yes Status: Acute Code(s): Z98.891 - HISTORY OF UTERINE SCAR FROM PREVIOUS SURGERY SNOMED Code(s): 719699073 Plan: Will continue routine postoperative care, as the infant is in the nursery patient will stay until postop day #4.
[2017-09-29] MEDS ORDERED: IBUPROFEN 600 MG TAB PO ONE (04:11)
--- NOTE | 2017-09-29 08:08 | P.PNOBGPC ---
Subjective - Subjective Principal diagnosis: POD 3 repeat section with tubal ligation Interval history: Patient is doing well /postoperatively. She is ambulating and voiding without difficulty she denies nausea or vomiting, her lochia is minimal. She is denying concerns this morning Patient reports: Reports appetite normal, Reports voiding normally, Reports pain well controlled, Reports ambulating normally [place]: other (In the nursery receiving IV antibiotics) Objective - Vital Signs Latest vital signs: Vital Signs Temp Pulse Resp BP Pulse Ox 09/28/17 15:20 99.2 F 79 18 129/79 99 - Exam Extremities: Present: normal, edema Abdomen: Present: normal appearance, soft Incision: Present: normal, dry, intact Uterus: Present: normal, firm Assessment and Plan (1) delivery delivered Current Visit: Yes Status: Acute Code(s): O82 - ENCOUNTER FOR DELIVERY WITHOUT INDICATION SNOMED Code(s): 746985345 (2) Family planning Current Visit: Yes Status: Acute Code(s): Z30.09 - ENCOUNTER FOR OTH GENERAL CNSL AND ADVICE ON CONTRACEPTION SNOMED Code(s): 591319254 (3) Obesity Current Visit: Yes Status: Acute Code(s): E66.9 - OBESITY, UNSPECIFIED SNOMED Code(s): 766414503 (4) Previous section Current Visit: Yes Status: Acute Code(s): Z98.891 - HISTORY OF UTERINE SCAR FROM PREVIOUS SURGERY SNOMED Code(s): 081881994 Plan: Will continue routine postoperative care, as the is in the nursery patient will stay until postop day #4.
[2017-09-29] MEDS: SENNOSIDES-DOCUSATE SODIUM 1 EACH TAB PO SCH (09:41)
[2017-09-29] MEDS: PRENATAL VIT-IRON-FOLIC ACID 1 EACH CAP PO SCH (10:25)
[2017-09-29] MEDS: IBUPROFEN 600 MG TAB PO PRN (15:17)
[2017-09-30] MEDS: SENNOSIDES-DOCUSATE SODIUM 1 EACH TAB PO SCH ×2 (00:23→08:58)
[2017-09-30] MEDS: IBUPROFEN 600 MG TAB PO PRN (01:20)
[2017-09-30] MEDS: PRENATAL VIT-IRON-FOLIC ACID 1 EACH CAP PO SCH (08:58)
[2017-09-30 08:59] VITALS: BP 135/89; PULSE 88; RESP 17; TEMP 97.9
--- NOTE | 2017-09-30 08:59 | P.DS ---
Providers Date of admission: 09/26/17 09:45 Expected date of discharge: 09/30/17 Attending physician: Jovanni Andrews Primary care physician: Stated None Hospital Course: This is a 32-year-old white female 4 para 10-1 EDC 10/07/2017 at 39 weeks gestation. Patient presented for repeat low transverse section, declining option for . was essentially unremarkable, group B strep cultures negative, rubella status immune. Please see dictated history and physical for details. Patient underwent a repeat low transverse section and gave to a liveborn male with scores of 9 and 9 at one and 5 minutes respectively. He weighed 4230 g or 9 lbs. 5 oz. She did well intraoperatively with an estimate a blood loss of only 200 mL's. Tubal ligation was performed at the same time. Please see dictated operative note for details. This morning the patient is doing well. She is voiding, ambulate and passing flatus without difficulty. Vital signs are stable and she is afebrile. Incision is clean and dry, intact, Steri-Strips applied. Pain is well- controlled with ibuprofen. She is judged to be in very good condition for discharge home. Patient will follow-up with Dr. Andrews in the office in 2 weeks for incision check. She will use [id number] ibuprofen products, 200 mg pills, 3 every 6 hours as needed. She will continue taking her vitamin daily. I have reminded her no tampons, intercourse or douching. No driving for 2. Her infant is still in the nursery with antibiotic therapy and will be circumcised prior to discharge home. Patient Condition at Discharge: Good Plan - Discharge Summary New Discharge Prescriptions: No Action Pnv No.95/Ferrous Fum/Folic AC [ Multivitamin Tablet] 1 each PO DAILY Discharge Medication List Pnv No.95/Ferrous Fum/Folic AC [ Multivitamin Tablet] 1 each PO DAILY [History] Follow up Appointment(s)/Referral(s): Jovanni Andrews MD [STAFF PHYSICIAN] - 2 Weeks Discharge Disposition: HOME SELF-CARE
== END 2017-09-30 13:40 | disposition home or self-care (01) | DRG 766 ==
LOC: 4FBP 09:45
PROVIDERS: ADMIT Obstetrics & Gynecology; ATTEND Obstetrics & Gynecology
PROC: 0UL70CZ Occlusion of Bilateral Fallopian Tubes with Extraluminal Device, Open Approach (ICD-10-PCS; 2017-09-26)
PROC: 10D00Z1 Extraction of Products of Conception, Low, Open Approach (ICD-10-PCS; principal; 2017-09-26 12:30)
DX: O34.211 Maternal care for low transverse scar from previous cesarean delivery (principal); Z37.0 Single live birth; O99.214 Obesity complicating childbirth; E66.01 Morbid (severe) obesity due to excess calories; O99.62 Diseases of the digestive system complicating childbirth; R11.2 Nausea with vomiting, unspecified; Z3A.39 39 weeks gestation of pregnancy; Z30.2 Encounter for sterilization; Z86.14 Personal history of Methicillin resistant Staphylococcus aureus infection; Z88.5 Allergy status to narcotic agent; Z88.8 Allergy status to other drugs, medicaments and biological substances; Z90.49 Acquired absence of other specified parts of digestive tract; Z84.89 Family history of other specified conditions
CPT/HCPCS: 85025; 86850; 86900; 86901

== ENCOUNTER → 2023-03-08 | Outpatient (CLI) | payer OTHER ==
[2023-03-08 15:09] VITALS: BP 143/84; PULSE 76; RESP 16; TEMP 97.9; BMI 46.8
--- NOTE | 2023-03-08 15:47 | P.HPBAR ---
Bariatric H&P - History & Physicial H&P Date: 03/08/23 History & Physicial: Visit/CC: New Pt Patient initial contact: Initial weight: 135.624 kg Initial weight in pounds: 299.00 Height: 5 ft 7 in Initial BMI: 46.8 Last weight: Current weight: 135.624 kg Current weight in pounds: 299.00 Current BMI: 46.8 [place] body weight (based on NIH guidelines): 61.235 kg Excess body weight loss: 0.0% The patient is a 37 year-old F who presents for Bariatric Assessment. DATE OF SERVICE: 03/08/23 REASON FOR CONSULTATION: Initial bariatric evaluation. HISTORY OF PRESENT ILLNESS: Daquan Coronado is a 38-year-old female who comes with lifelong morbid obesity. She comes in with severe gastroesophageal reflux disease. She is open to bariatric procedures. Denies inflammatory bowel disease in her family. She has diverticulitis. She denied prior scopes. She denies colon or stomach cancer. She reports osteoarthritis of the back, hips, knees. She has sleep apnea with snoring. She had removal of her gallbladder and appendix. She denies food stuck. She had tonsil surgery. Highest weight was 340 pounds. She has been on medical supervised weight loss including adipex and weight watchers. She presents for the first time in consultation. At height of 5 feet 7 inches, her ideal body weight is 158 pounds. Her highest weight is 340 pounds. She comes in 299 pounds. Her body mass index is 46.8. She is 141 pounds overweight. PAST MEDICAL HISTORY: 1. Morbid obesity due to excess calories 2. Body mass index of 46.8, initial 3. Migraine 4. Postoperative nausea or vomiting 5. History of MRSA 6. 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 Obstructive sleep apnea PAST SURGICAL HISTORY: 1. Appendectomy 2. Section 3. Cholecystectomy 4. Dilatation and curettage HOME MEDICATIONS: Home Medications Medication Instructions Recorded Confirmed Pnv No.95/Ferrous Fum/Folic AC 1 each PO DAILY 09/22/17 09/22/17 [ Multivitamin Tablet] Ergocalciferol [Vitamin D2 (1250 50,000 unit PO WEEKLY 03/15/23 03/15/23 Mcg = 06799 Iu)] ALLERGIES: Allergies Allergy/AdvReac Type Severity Reaction Status Date / Time codeine Allergy Nausea & Verified 10/16/17 10:08 Vomiting diphenhydramine Allergy Nausea & Verified 10/16/17 10:08 [From Benadryl] Vomiting & panic attacks all pain medicine AdvReac Nausea & Uncoded 10/16/17 10:08 Vomiting SOCIAL HISTORY: Denies past tobacco use. FAMILY HISTORY: No family history of ulcerative colitis disease or Crohn's disease. Family history of morbid obesity. No lupus in the family. No reports of stomach or esophageal cancer. REVIEW OF ORGAN SYSTEMS: CONSTITUTIONAL: At height of 5 feet 7 inches, her ideal body weight is 158 pounds. Her highest weight is 340 pounds. She comes in 299 pounds. Her body mass index is 46.8. She is 141 pounds overweight. HEENT: Denies any active troubles with vision or hearing. Denies troubles with swallowing. ENDOCRINE: Denies diabetes. No hypothyroidism. CARDIOVASCULAR: Denies past reports of palpitations or heart attacks or chest pain. RESPIRATORY:Denies pneumonia. Has obstructive sleep apnea. GASTROINTESTINAL: Denies any bright red blood per rectum. No diarrhea. No constipation. Has gastroesophageal reflux disease. GENITOURINARY: Denies bladder urgency. No recent blood in urine MUSCULOSKELETAL: Has lower back pain and joint pain. Has osteoarthritis of the knees. NEURO: No headaches. No seizure disorders. PSYCH: Denies depression. No suicidal ideation. RHEUMATOLOGIC: No lupus. No rheumatoid arthritis. HEMATOLOGIC: Denies any abnormal bleeding or bruising. SKIN: No rash. No skin cancer. PHYSICAL EXAM: VITAL SIGNS: Height 5 foot 7 inches, weight 299 pounds. BMI 46.8 Vital Signs Temp 97.9 F 03/08/23 14:37 Pulse 76 03/08/23 14:37 Resp 16 03/08/23 14:37 BP 143/84 03/08/23 14:37 Pulse Ox FiO2 GENERAL: Well-developed in no acute distress. HEENT: No scleral icterus. Extraocular movements grossly intact. Hears conversational speech. No nasal drainage. NECK: Supple without lymphadenopathy. CHEST: Nonlabored respirations with equal bilateral excursions. CARDIOVASCULAR: Regular rate and regular rhythm. Distal 2+ pulses. ABDOMEN: Obese, soft, nontender, nondistended. MUSCULOSKELETAL: No clubbing, cyanosis. NEURO: No focal or lateralizing signs. Cranial nerves 2 through 12 grossly within normal limits. PSYCH: Appropriate affect. Alert and oriented to person, place and time. SKIN: Good skin turgor. Well perfused. ASSESSMENT: 1. Morbid obesity due to excess calories 2. Body mass index of 46.8, initial 3. Migraine 4. Postoperative nausea or vomiting 5. History of MRSA 6. 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 Obstructive sleep apnea PLAN: 1. Surgical options including band, gastric bypass, sleeve gastrectomy were described in detail. Alternatives such as gastric balloon including duodenal switch were described. He is looking into the gastric bypass. 2. The [place] bariatric surgical collaborative data and outcomes available 3. Recommend a bariatric metabolic panel to evaluate for micro- including macronutrient deficiencies. 4. For history of daytime somnolence, recommend evaluation and treatment for sleep apnea. 5. Dietary surveillance and counseling was reviewed. Increased protein intake over 65 grams daily advised. 6. Will need cardiac risk assessment. 7. Recommend medical risk assessment. 8. Psych assessment per insurance guidelines. 9. Recommend upper endoscopy. 10. Recommend 12-lead EKG. 11. Recommend esophagram 12. Recommend full urine metabolites testing Thank you for this consultation. Past Medical History Past Medical History: No Reported History Additional Past Medical History / Comment(s): migraines History of Any Multi-Drug Resistant Organisms: MRSA Year Discovered:: 2013 MDRO Source:: nose Past Surgical History: Appendectomy, Section, Cholecystectomy Additional Past Surgical History / Comment(s): D&C Past Anesthesia/Blood Transfusion Reactions: Postoperative Nausea & Vomiting (PONV) Smoking Status: Unknown if ever smoked - Past Family History Mother Additional Family Medical History / Comment(s): Lupus Surgical - Exam Vital Signs Temp Pulse Resp BP 97.9 F 76 16 143/84 03/08/23 14:37 03/08/23 14:37 03/08/23 14:37 03/08/23 14:37 Results - Labs 03/08/23 16:05 03/08/23 16:05 Bariatric Checklist Checklist: Plan: Checklist: EGD: 1. Hiatal hernia: 2. H. Pylori: HgbA1c: Vitamin D: Smoking: Former smoker Primary care physician referral: Kiara Burrows Psychiatry clearance: Cardiology clearance: Sleep study: Diet journal: VTE risk score: VTE risk level: Rehab needs at discharge:
[2023-03-09 02:21] LABS: HCT 33.3 % (37.2-46.3); HGB 10.9 g/dL (12.0-15.0); MCH 31.3 pg (27.0-32.0); MCHC 32.7 g/dL (32.0-37.0); MCV 95.7 FL (80.0-97.0); Mean Platelet Volume 9.4 FL (9.5-12.2); NRBC Per 100 WBC 0 X 10*3/uL (0.00-0.01); Platelet Count 320 X 10*3/uL (140-440); RBC 3.48 X 10*6/uL (4.10-5.20); RDW 13.2 % (11.5-14.5); WBC 7.64 X 10*3/uL (4.50-10.00)
[2023-03-09 04:03] LABS: % Iron Saturation 19.67 (12.00-45.00); ALT 29 U/L (8-44); AST 29 U/L (13-35); Albumin 3.7 g/dL (3.8-4.9); Albumin/Globulin Ratio 1.28 Ratio (1.60-3.17); Alkaline Phosphatase 60 U/L (41-126); Blood Urea Nitrogen 16.6 mg/dL (9.0-27.0); Calcium 8.7 mg/dL (8.7-10.3); Carbon Dioxide 21.8 mmol/L (21.6-31.8); Chloride 107 mmol/L (96-109); Chol/HDL Ratio 2.59 Ratio; Ferritin 59.6 ng/mL (10.0-291.0); Globulin 2.9 g/dL (1.6-3.3); Glucose 97 mg/dL (70-110); Iron 59 UG/DL (50-170); LDL Cholesterol,Calculated 73.2 mg/dL (0.0-131.0); Phosphorus 3.4 mg/dL (2.4-5.1); Potassium 4.6 mmol/L (3.5-5.5); Sodium 140 mmol/L (135-145); Total Bilirubin <0.2 mg/dL (0.3-1.2); Total Iron Binding Capacity 300 UG/DL (228-460); Total Protein 6.6 g/dL (6.2-8.2)
[2023-03-09 04:10] LABS: Prealbumin 17.4 mg/dL (18.0-42.0)
[2023-03-09 10:55] LABS: Zinc, Serum 53 ug/dL (60-130)
[2023-03-12 14:09] LABS: Selenium 121 mcg/L (63-160)
[2023-03-14 07:03] LABS: Vitamin A 39 ug/dL (38-106)
[2023-03-14 12:27] LABS: Vit B1(Thiamine) 45 ug/L (38-122)
== END ==
LOC: BARWHC3 14:15
PROVIDERS: ATTEND Surgery Plastic and Reconstructive Surgery
DX: E66.01 Morbid (severe) obesity due to excess calories (principal); G43.909 Migraine, unspecified, not intractable, without status migrainosus; R11.2 Nausea with vomiting, unspecified; M47.816 Spondylosis without myelopathy or radiculopathy, lumbar region; M17.0 Bilateral primary osteoarthritis of knee; M16.0 Bilateral primary osteoarthritis of hip; G47.33 Obstructive sleep apnea (adult) (pediatric); Z68.42 Body mass index [BMI] 45.0-49.9, adult; Z90.49 Acquired absence of other specified parts of digestive tract; Z86.14 Personal history of Methicillin resistant Staphylococcus aureus infection; Z88.5 Allergy status to narcotic agent; Z88.8 Allergy status to other drugs, medicaments and biological substances; Z88.6 Allergy status to analgesic agent; Z87.891 Personal history of nicotine dependence
CPT/HCPCS: 84255; 84134; 84425; 80061; 80053; 82607; 82728; 82525; 82746; 83540; 83550; 83735; 84100; 84443; 84590; 84630; 85027; 82306; 83970; 83036; 93005; G0463; 99202

== ENCOUNTER 2023-04-17 06:40 | Day surgery (SDC) | payer OTHER ==
--- NOTE | 2023-04-17 05:55 | P.GSHP ---
History of Present Illness H&P Date: 04/17/23 CHIEF COMPLAINT: GERD HISTORY OF PRESENT ILLNESS: The patient is a 38-year-old female who presents reports gastroesophageal reflux disease. Upper endoscopy was offered for further evaluation and management. PAST MEDICAL HISTORY: Please see list. PAST SURGICAL HISTORY: Please see list. MEDICATIONS: Please see list. ALLERGIES: Please see list. SOCIAL HISTORY: No illicit drug use FAMILY HISTORY: No reports of Crohn disease or ulcerative colitis. REVIEW OF ORGAN SYSTEMS: CONSTITUTIONAL: No reports of fevers or chills. GI: Denies any blood in stools or constipation. PHYSICAL EXAM: VITAL SIGNS: Stable GENERAL: Well-developed and pleasant in no acute distress. HEENT: No scleral icterus. Extraocular movements grossly intact. Moist buccal mucosa. NECK: Supple without lymphadenopathy. CHEST: Unlabored respirations. Equal bilateral excursions. CARDIOVASCULAR: Regular rate and rhythm. Distal 2+ pulses. ABDOMEN: Soft, nondistended. MUSCULOSKELETAL: No clubbing, cyanosis, or edema. ASSESSMENT: 1. Gastroesophageal reflux disease PLAN: 1. Recommend proceeding with an upper endoscopy Past Medical History Past Medical History: No Reported History Additional Past Medical History / Comment(s): migraines History of Any Multi-Drug Resistant Organisms: MRSA Date of last positivie culture/infection: 2013 MDRO Source:: nose Past Surgical History: Appendectomy, Section, Cholecystectomy Additional Past Surgical History / Comment(s): D&C Past Anesthesia/Blood Transfusion Reactions: Postoperative Nausea & Vomiting (PONV) Smoking Status: Former smoker - Past Family History Mother Additional Family Medical History / Comment(s): Lupus Medications and Allergies Home Medications Medication Instructions Recorded Confirmed Type Multivitamins, Thera [Multivitamin 1 tab PO DAILY 04/12/23 04/12/23 History (formulary)] Allergies Allergy/AdvReac Type Severity Reaction Status Date / Time codeine Allergy Nausea & Verified 04/12/23 12:56 Vomiting diphenhydramine Allergy Nausea & Verified 04/12/23 12:56 [From Benadryl] Vomiting & panic attacks all pain medicine AdvReac Nausea & Uncoded 04/12/23 12:56 Vomiting
[2023-04-17] MEDS ORDERED: LACTATED RINGERS 1,000 ML IV SCH (07:09)
[2023-04-17 07:20] VITALS: TEMP 98.2
[2023-04-17] MEDS ORDERED: PROPOFOL 10 MG/ML 20 ML VIAL IV ONE (07:25)
[2023-04-17] MEDS ORDERED: LIDOCAINE 1% INJ 10MG/ML (20 ML MDV) ONE (07:25)
--- NOTE | 2023-04-17 07:43 | P.PCN ---
Date of Procedure: 04/17/23 Description of Procedure: PREOPERATIVE DIAGNOSIS: Gastroesophageal reflux disease. Morbid obesity. POSTOPERATIVE DIAGNOSIS: Gastroesophageal reflux disease. Morbid obesity. Gastritis. Diaphragmatic hiatal hernia OPERATION: Esophagogastroduodenoscopy with biopsies along the esophagus, antrum and duodenum SURGEON: Krystin Trujillo MD ANESTHESIA: MAC. INDICATIONS: The patient is a 38-year-old female who presents with reflux disease. Benefits and risks of the procedure were described. Informed consent was obtained. DESCRIPTION: The patient was brought into the endoscopy suite and laid in the left lateral decubitus position. An Olympus gastroscope was passed along the posterior oropharynx down to the distal esophagus where the squamocolumnar junction was encountered at 37 cm from the incisors. The stomach was entered and no bile reflux was found. Additional findings are listed below. Biopsies with cold forceps were obtained of the antrum. The first through third portion of the duodenum was examined. Retroflexion of the scope confirmed Hill grade 1 lower esophageal valve. The squamocolumnar junction demonstrated LA grade B erosive esophagitis. The stomach was desufflated. The patient tolerated the procedure well. FINDINGS: Squamocolumnar junction 37 cm from the incisors. Diaphragmatic hiatus at 38 cm. Hiatal hernia, 1 cm Hill grade 1 lower esophageal valve. LA grade B erosive esophagitis. Biopsies obtained Biopsies obtained of the duodenum. Chronic gastritis with biopsies obtained. RECOMMENDATIONS: Upper endoscopy as needed. Plan - Discharge Summary Discharge Rx Participant: No New Discharge Prescriptions: Continue Multivitamins, Thera [Multivitamin (formulary)] 1 tab PO DAILY Discharge Medication List Multivitamins, Thera [Multivitamin (formulary)] 1 tab PO DAILY 04/12/23 [History] Follow up [place]ment(s[place]Ref[place] Patient Instructions/Handouts: Hiatal Hernia (GEN) Discharge Disposition: HOME SELF-CARE
[2023-04-17 08:20] VITALS: BP 117/74; PULSE 79; RESP 18
== END 2023-04-17 08:19 | disposition home or self-care (01) ==
LOC: ORWHC2ENDO 06:40
PROVIDERS: ATTEND Surgery Plastic and Reconstructive Surgery
DX: K29.50 Unspecified chronic gastritis without bleeding (principal); K21.00 Gastro-esophageal reflux disease with esophagitis, without bleeding; E66.01 Morbid (severe) obesity due to excess calories; K44.9 Diaphragmatic hernia without obstruction or gangrene; Z90.49 Acquired absence of other specified parts of digestive tract; Z98.890 Other specified postprocedural states; Z87.891 Personal history of nicotine dependence; G43.909 Migraine, unspecified, not intractable, without status migrainosus; Z79.899 Other long term (current) drug therapy; Z88.5 Allergy status to narcotic agent; Z88.8 Allergy status to other drugs, medicaments and biological substances; Z88.6 Allergy status to analgesic agent; Z68.42 Body mass index [BMI] 45.0-49.9, adult
CPT/HCPCS: 81025; 43239; J2001; J2704; 88305

== ENCOUNTER → 2023-06-12 | Outpatient (CLI) | payer OTHER ==
[2023-06-12 15:00] VITALS: BMI 46.0
== END ==
LOC: BARWHC3 12:48
PROVIDERS: ATTEND Surgery Plastic and Reconstructive Surgery
DX: E66.01 Morbid (severe) obesity due to excess calories (principal); Z71.3 Dietary counseling and surveillance; Z68.42 Body mass index [BMI] 45.0-49.9, adult; Z88.5 Allergy status to narcotic agent; Z88.8 Allergy status to other drugs, medicaments and biological substances; Z87.891 Personal history of nicotine dependence
CPT/HCPCS: 97804; G0463; 99211

== ENCOUNTER → 2023-08-16 | Outpatient (CLI) | payer OTHER ==
[2023-08-16 18:26] LABS: Basophils # (A) 0.06 X 10*3/uL (0.00-0.10); Basophils % (A) 0.7 %; Eosinophils # (A) 0.28 X 10*3/uL (0.04-0.35); Eosinophils % (A) 3.2 %; HCT 35.5 % (37.2-46.3); HGB 11.8 g/dL (12.0-15.0); Lymphocytes # (A) 2.77 X 10*3/uL (0.90-5.00); Lymphocytes % (A) 32.1 %; MCH 31.8 pg (27.0-32.0); MCHC 33.2 g/dL (32.0-37.0); MCV 95.7 FL (80.0-97.0); Mean Platelet Volume 10.1 FL (9.5-12.2); Monocytes % (A) 9.3 %; NRBC Per 100 WBC 0 X 10*3/uL (0.00-0.01); Neutrophils # (A) 4.69 X 10*3/uL (1.80-7.70); Neutrophils % (A) 54.5 %; Platelet Count 358 X 10*3/uL (140-440); RBC 3.71 X 10*6/uL (4.10-5.20); RDW 13.3 % (11.5-14.5); WBC 8.62 X 10*3/uL (4.50-10.00)
[2023-08-17 03:57] LABS: BUN/Creat Ratio 22.45 Ratio (12.00-20.00); Blood Urea Nitrogen 24.7 mg/dL (9.0-27.0); Glucose 96 mg/dL (70-110)
[2023-08-17 03:58] LABS: ALT 33 U/L (8-44); AST 32 U/L (13-35); Albumin 4.3 g/dL (3.8-4.9); Alkaline Phosphatase 54 U/L (41-126); Calcium 9.4 mg/dL (8.7-10.3); Carbon Dioxide 22.2 mmol/L (21.6-31.8); Chloride 104 mmol/L (96-109); Globulin 3.3 g/dL (1.6-3.3); Potassium 4.3 mmol/L (3.5-5.5); Sodium 138 mmol/L (135-145); Total Bilirubin 0.3 mg/dL (0.3-1.2); Total Protein 7.6 g/dL (6.2-8.2)
== END | disposition home or self-care (01) ==
LOC: LABPAT 16:11
PROVIDERS: ATTEND Surgery Plastic and Reconstructive Surgery
DX: Z01.812 Encounter for preprocedural laboratory examination (principal)
CPT/HCPCS: 80053; 82306; 84630; 85025; 86850; 86900; 86901

== ENCOUNTER → 2023-08-16 | Outpatient (CLI) | payer OTHER ==
[2023-08-16 15:36] VITALS: BP 129/86; PULSE 86; TEMP 98; BMI 45.1
--- NOTE | 2023-08-21 08:31 | P.BASOAP ---
Subjective Progress Note Date: 08/16/23 DATE: 08/16/23 CHIEF COMPLAINT: Morbid obesity HISTORY OF PRESENT ILLNESS: Daquan Coronado is a 38-year-old female who comes with lifelong morbid obesity. She has completed cardiac risk assessment. She has completed medical weight loss management. She is completed psychiatric risk assessment. She presents seeking a gastric bypass. At height of 5 feet 7 inches, her ideal body weight is 158 pounds. Her highest weight is 349 pounds, body mass index of 54.8. She comes in 288 pounds from 294 pounds, 2 months ago. She has lost 6 pounds in 2 months. Her body mass index is 45.1. She is 130 pounds overweight. PAST MEDICAL HISTORY: 1. Morbid obesity due to excess calories 2. Body mass index of 45.1 3. Migraines 4. Postop nausea vomiting 5. History of MRSA PAST SURGICAL HISTORY: 1. Appendectomy 2. section 3. Cholecystectomy 4. Dilatation and curettage HOME MEDICATIONS: Previous Rx's Medication Instructions Recorded Acetaminophen Tab [Tylenol] 1,000 mg PO Q6HR PRN #30 tablet 08/22/23 Omeprazole [PriLOSEC] 40 mg PO DAILY #90 cap 08/22/23 Ondansetron Odt [Zofran Odt] 4 mg PO Q8HR PRN #9 tab 08/22/23 Simethicone 40 mg/0.6 ml Drops 40 mg PO PCHS PRN #30 ml 08/22/23 [Mylicon Drops] bisacodyL [Dulcolax] 5 mg PO DAILY PRN #10 tab 08/22/23 ALLERGIES: Allergies Allergy/AdvReac Type Severity Reaction Status Date / Time codeine Allergy Nausea & Verified 09/20/23 14:28 Vomiting diphenhydramine Allergy Nausea & Verified 09/20/23 14:28 [From Benadryl] Vomiting & panic attacks all pain medicine AdvReac Nausea & Uncoded 09/20/23 14:28 Vomiting SOCIAL HISTORY: Past tobacco use. FAMILY HISTORY: No family history of ulcerative colitis disease or Crohn's disease. Family history of morbid obesity. No lupus in the family. No reports of stomach or esophageal cancer. Lupus REVIEW OF ORGAN SYSTEMS: CONSTITUTIONAL: HEENT: Denies any active troubles with vision or hearing. ENDOCRINE: Denies diabetes. Denies hypothyroidism. CARDIOVASCULAR: Denies past reports of palpitations or heart attacks or chest pain. RESPIRATORY: Denies daytime somnolence. GASTROINTESTINAL: Denies any bright red blood per rectum. Has gastroesophageal reflux disease. MUSCULOSKELETAL: Has lower back pain and joint pain. Has osteoarthritis of the knees. NEURO: No headaches. No seizure disorders. PSYCH: Denies depression. No suicidal ideation. RHEUMATOLOGIC: No lupus. No rheumatoid arthritis. HEMATOLOGIC: Denies any abnormal bleeding or bruising. No personal history of DVTs. SKIN: Denies rash. No skin cancer. PHYSICAL EXAM: VITAL SIGNS: Height 5 foot 10 inches, weight 226 pounds. BMI 32.4 Vital Signs Temp 98 F 08/16/23 15:34 Pulse 86 08/16/23 15:34 Resp BP 129/86 08/16/23 15:34 Pulse Ox FiO2 GENERAL: Well-developed in no acute distress. HEENT: No scleral icterus. Extraocular movements grossly intact. Hears conversational speech. No nasal drainage. NECK: Supple without lymphadenopathy. CHEST: Nonlabored respirations with equal bilateral excursions. CARDIOVASCULAR: Regular rate and regular rhythm. Distal 2+ pulses. ABDOMEN: Obese, soft, nontender, nondistended. MUSCULOSKELETAL: No clubbing, cyanosis. NEURO: No focal or lateralizing signs. Cranial nerves 2 through 12 grossly within normal limits. PSYCH: Appropriate affect. Alert and oriented to person, place and time. SKIN: Good skin turgor. Well perfused. LABS: Reviewed. Urine nicotine negative. Hemoglobin low, 10.9, anemia. Albumin low. Prealbumin low. Vitamin D low. Zinc low EKG: Borderline EKG with LVH variant, sinus bradycardia EGD FINDINGS: Squamocolumnar junction 37 cm from the incisors. Diaphragmatic hiatus at 38 cm. Hiatal hernia, 1 cm Hill grade 1 lower esophageal valve. LA grade B erosive esophagitis. Biopsies obtained Biopsies obtained of the duodenum. Chronic gastritis with biopsies obtained. Final Pathologic Diagnosis A. DUODENUM, BIOPSY: Small bowel mucosa with no significant histologic abnormality. B. STOMACH, ANTRUM, BIOPSY: Mild chronic gastritis. No Helicobacter organisms seen on H+E staining. C. ESOPHAGUS, BIOPSY: Squamous epithelium with mild chronic inflammation. Negative for Barretts esophagus. ASSESSMENT: 1. Morbid obesity due to excess calories 2. Body mass index of 45.1 3. Migraines 4. Postop nausea vomiting 5. History of MRSAAnemia 6. Hypoalbuminemia 7. Vitamin D deficiency 8. Zinc deficiency 9. Borderline EKG 10. Diaphragmatic hiatal hernia 11. Chronic gastritis 12. Gastroesophageal reflux disease PLAN: 1. Bariatric options between a sleeve, band and a Manuel-en-Y gastric bypass were reviewed in detail. The patient elected for gastric bypass. Robotic assisted approach described. 2. The [place] [facility] Data was also reviewed with benefits and risks as described. 3. An 8 page second-generation bariatric consent form was reviewed in detail including potential of bleeding, infection, leaks, adequate weight loss, nutritional deficiencies which the patient demonstrated understanding of the risks. 4. A 2 week high-protein low caloric 800 kcal diet described to address hepatomegaly. 5. Preoperative labs including complete metabolic panel and CBC with type and screen recommended. 6. DVT prophylaxis per [place] [facility]. 7. Antibiotic prophylaxis. 8. Inpatient hospitalization anticipated for more than 2 nights. 9. All questions and concerns were addressed with the patient. 10. Overall, patient has expressed understanding of bariatric care including postoperative diet and commitment of lifestyle. Patient should benefit from surgical intervention for correction of morbid obesity. 11. With her presenting weight of 294 pounds. She has target of 280 pounds. 12. Expected 8 pound weight loss until Monday. 13. Recommend fidgeting which will help to prevent blood clots 14. She is advised to increase fluid intake at least 64 ounces daily. 15 Consent for bypass vs. sleeve reviewed. Patient wants scar tissue removal then come back for bypass. Objective - Vital Signs Vital signs: Vital Signs Temp 98 F 08/16/23 15:34 Pulse 86 08/16/23 15:34 Resp BP 129/86 08/16/23 15:34 Pulse Ox FiO2 Assessment/Plan Plan: Date: 08/16/23 Initial Weight: 135.624 kg Initial BMI: 46.8 Current Weight: 130.635 kg Current BMI: 45.1 Type of Surgery: Total Volume in Band: Previous Volume: Volume Removed: Volume Added: Band Size:
== END ==
LOC: BARWHC3 14:11
PROVIDERS: ATTEND Surgery Plastic and Reconstructive Surgery
DX: E66.01 Morbid (severe) obesity due to excess calories (principal); G43.909 Migraine, unspecified, not intractable, without status migrainosus; K91.0 Vomiting following gastrointestinal surgery; E88.09 Other disorders of plasma-protein metabolism, not elsewhere classified; K21.9 Gastro-esophageal reflux disease without esophagitis; K29.50 Unspecified chronic gastritis without bleeding; E55.9 Vitamin D deficiency, unspecified; R94.31 Abnormal electrocardiogram [ECG] [EKG]; K44.9 Diaphragmatic hernia without obstruction or gangrene; E60 Dietary zinc deficiency; Z86.14 Personal history of Methicillin resistant Staphylococcus aureus infection; Z86.2 Personal history of diseases of the blood and blood-forming organs and certain disorders involving the immune mechanism; Z68.42 Body mass index [BMI] 45.0-49.9, adult; Z88.5 Allergy status to narcotic agent; Z88.8 Allergy status to other drugs, medicaments and biological substances; Z87.891 Personal history of nicotine dependence
CPT/HCPCS: 99211

== ENCOUNTER 2023-08-21 07:45 | Inpatient (IN) | payer OTHER ==
--- NOTE | 2023-08-16 16:07 | P.BASOAP ---
Subjective Progress Note Date: 08/16/23 Weight of 294 pounds. Target of 280 pounds. At least 8 pound weight loss until Monday. FDD plan. Consent for bypass vs. sleeve. Patient wants scar tissue removal then come back for bypass. Risk for weight loss reviewed. Objective - Vital Signs Vital signs: Intake & Output 08/15/23 08/16/23 08/16/23 18:59 06:59 18:59 Weight 129.274 kg Assessment/Plan Plan: Date: Initial Weight: 135.624 kg Initial BMI: Current Weight: 129.274 kg Current BMI: 44.6 Type of Surgery: Total Volume in Band: Previous Volume: Volume Removed: Volume Added: Band Size:
[~2023-08-21 07:45] MED LIST: LIDOCAINE 1% (10MG/ML) FOR IV START INTRADERMA PRN; ONDANSETRON 4 MG/2 ML VIAL IVP PRN
[2023-08-21] MEDS: IV FLUID CONTINUATION 1,000 ML IV ONE (08:04)
[2023-08-21] MEDS: ACETAMINOPHEN TAB 500 MG TAB PO PRN (08:33)
[2023-08-21] MEDS: DEXAMETHASONE SOD PHOSPHATE 4 MG/ML 1 ML VIAL IV ONE (08:34)
[2023-08-21] MEDS: LACTATED RINGERS 1,000 ML IV SCH (08:34)
[2023-08-21] MEDS: ONDANSETRON 4 MG/2 ML VIAL IVP ONE (08:34)
[2023-08-21] MEDS: ALVIMOPAN 12 MG CAPSULE PO PRN (08:34)
[2023-08-21] MEDS: HEPARIN SODIUM,PORCINE 5,000 UNIT/ML 1 ML VIAL SQ PRN (08:34)
--- NOTE | 2023-08-21 08:36 | P.GSHP ---
History of Present Illness H&P Date: 08/21/23 CHIEF COMPLAINT: Morbid obesity HISTORY OF PRESENT ILLNESS: Daquan Coronado is a 38-year-old female who comes with lifelong morbid obesity. She comes in with severe gastroesophageal reflux disease.She reports osteoarthritis of the back, hips, knees. She has sleep apnea with snoring. She completed bariatric assessment including cardiac risk assessment, medical risk assessment and psych assessment. She elected for gastric bypass. T At height of 5 feet 7 inches, her ideal body weight is 158 pounds. Her highest weight is 340 pounds, body mass index 53.4. Her body mass index is 46.8. She is 141 pounds overweight. PAST MEDICAL HISTORY: 1. Morbid obesity due to excess calories 2. Body mass index of 46.8, initial 3. Migraine 4. Postoperative nausea or vomiting 5. History of MRSA 6. 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 Obstructive sleep apnea PAST SURGICAL HISTORY: 1. Appendectomy 2. Section 3. Cholecystectomy 4. Dilatation and curettage HOME MEDICATIONS: Home Medications Medication Instructions Recorded Confirmed Pnv No.95/Ferrous Fum/Folic AC 1 each PO DAILY 09/22/17 09/22/17 [ Multivitamin Tablet] Ergocalciferol [Vitamin D2 (1250 50,000 unit PO WEEKLY 03/15/23 03/15/23 Mcg = 26142 Iu)] ALLERGIES: Allergies Allergy/AdvReac Type Severity Reaction Status Date / Time codeine Allergy Nausea & Verified 10/16/17 10:08 Vomiting diphenhydramine Allergy Nausea & Verified 10/16/17 10:08 [From Benadryl] Vomiting & panic attacks all pain medicine AdvReac Nausea & Uncoded 10/16/17 10:08 Vomiting SOCIAL HISTORY: Denies past tobacco use. FAMILY HISTORY: No family history of ulcerative colitis disease or Crohn's disease. Family history of morbid obesity. No lupus in the family. No reports of stomach or esophageal cancer. REVIEW OF ORGAN SYSTEMS: CONSTITUTIONAL: At height of 5 feet 7 inches, her ideal body weight is 158 pounds. Her highest weight is 340 pounds. She comes in 299 pounds. Her body mass index is 46.8. She is 141 pounds overweight. HEENT: Denies any active troubles with vision or hearing. Denies troubles with swallowing. ENDOCRINE: Denies diabetes. No hypothyroidism. CARDIOVASCULAR: Denies past reports of palpitations or heart attacks or chest pain. RESPIRATORY:Denies pneumonia. Has obstructive sleep apnea. GASTROINTESTINAL: Denies any bright red blood per rectum. No diarrhea. No constipation. Has gastroesophageal reflux disease. GENITOURINARY: Denies bladder urgency. No recent blood in urine MUSCULOSKELETAL: Has lower back pain and joint pain. Has osteoarthritis of the knees. NEURO: No headaches. No seizure disorders. PSYCH: Denies depression. No suicidal ideation. RHEUMATOLOGIC: No lupus. No rheumatoid arthritis. HEMATOLOGIC: Denies any abnormal bleeding or bruising. SKIN: No rash. No skin cancer. PHYSICAL EXAM: VITAL SIGNS: Height 5 foot 7 inches, weight 299 pounds. BMI 46.8 GENERAL: Well-developed in no acute distress. HEENT: No scleral icterus. Extraocular movements grossly intact. Hears conversational speech. No nasal drainage. NECK: Supple without lymphadenopathy. CHEST: Nonlabored respirations with equal bilateral excursions. CARDIOVASCULAR: Regular rate and regular rhythm. Distal 2+ pulses. ABDOMEN: Obese, soft, nontender, nondistended. MUSCULOSKELETAL: No clubbing, cyanosis. NEURO: No focal or lateralizing signs. Cranial nerves 2 through 12 grossly within normal limits. PSYCH: Appropriate affect. Alert and oriented to person, place and time. SKIN: Good skin turgor. Well perfused. ASSESSMENT: 1. Morbid obesity due to excess calories 2. Body mass index of 46.8, initial 3. Migraine 4. Postoperative nausea or vomiting 5. History of MRSA 6. 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 Obstructive sleep apnea PLAN: 1. Bariatric options between a sleeve, band and a Manuel-en-Y gastric bypass were reviewed in detail. The patient elected for gastric bypass. Robotic assisted approach described. 2. The [place] [facility] Data was also reviewed with benefits and risks as described. 3. An 8 page second-generation bariatric consent form was reviewed in detail including potential of bleeding, infection, leaks, adequate weight loss, nutritional deficiencies which the patient demonstrated understanding of the risks. 4. A 2 week high-protein low caloric 800 kcal diet described to address hepatomegaly. 5. Preoperative labs including complete metabolic panel and CBC with type and screen recommended. 6. DVT prophylaxis per [place] [facility]. 7. Antibiotic prophylaxis. 8. Inpatient hospitalization anticipated for more than 2 nights. 9. All questions and concerns were addressed with the patient. 10. The patient is at elevated risk for perioperative complications with sleep apnea and hypertensive heart disease. 11. Overall, patient has expressed understanding of bariatric care including postoperative diet and commitment of lifestyle. Patient should benefit from surgical intervention for correction of morbid obesity. 12. She is elevated risk due to pre-existing comorbid conditions 13. Weight of 294 pounds. Target of 280 pounds on day of procedure. Patient wants scar tissue removal then come back for bypass issues is present. Past Medical History Past Medical History: No Reported History Additional Past Medical History / Comment(s): migraines History of Any Multi-Drug Resistant Organisms: MRSA Date of last positivie culture/infection: 2013 MDRO Source:: nose Past Surgical History: Appendectomy, Section, Cholecystectomy Additional Past Surgical History / Comment(s): D&C Past Anesthesia/Blood Transfusion Reactions: Postoperative Nausea & Vomiting (PONV) Smoking Status: Former smoker - Past Family History Mother Additional Family Medical History / Comment(s): Lupus Medications and Allergies Home Medications Medication Instructions Recorded Confirmed Type Multivitamins, Thera [Multivitamin 1 tab PO DAILY 04/12/23 08/21/23 History (formulary)] Ergocalciferol [Vitamin D2 (1250 1,250 mcg PO WEEKLY #20 cap 05/24/23 08/21/23 Rx Mcg = 52354 Iu)] Allergies Allergy/AdvReac Type Severity Reaction Status Date / Time codeine Allergy Nausea & Verified 08/21/23 08:17 Vomiting diphenhydramine Allergy Nausea & Verified 08/21/23 08:17 [From Benadryl] Vomiting & panic attacks all pain medicine AdvReac Nausea & Uncoded 08/21/23 08:17 Vomiting
[2023-08-21] MEDS: SCOPOLAMINE 1 MG/72 HR PATCH TRANSDERM STA (08:43)
[2023-08-21] MEDS ORDERED: ROCURONIUM 10 MG/ML (5 ML VIAL) IV ONE (09:06)
[2023-08-21] MEDS: ceFAZolin 3 GM in SODIUM CHLORIDE 0.9% 100 ML IVPB PRN (09:06)
[2023-08-21] MEDS ORDERED: LIDOCAINE 1% INJ 10MG/ML (20 ML MDV) ONE (09:06)
[2023-08-21] MEDS ORDERED: PROPOFOL 10 MG/ML 20 ML VIAL IV ONE (09:06)
[2023-08-21] MEDS ORDERED: ONDANSETRON 4 MG/2 ML VIAL ONE (09:06)
[2023-08-21] MEDS ORDERED: KETOROLAC 15 MG/ML 1 ML VIAL ONE (09:06)
[2023-08-21] MEDS ORDERED: MIDAZOLAM 2 MG/2 ML VIAL ONE (09:06)
[2023-08-21] MEDS ORDERED: fentaNYL (PF) 50 MCG/ML 2 ML AMP ONE (09:06)
[2023-08-21] MEDS: LIDOCAINE 1%-EPI 1:100,000 20 ML VIAL SQ ONE (09:06)
[2023-08-21] MEDS ORDERED: GLYCOPYRROLATE 0.2 MG/ML 2 ML VIAL ONE (09:06)
[2023-08-21] MEDS ORDERED: NEOSTIGMINE 1 MG/ML 10 ML VIAL ONE (09:06)
[2023-08-21] MEDS: LACTATED RINGERS 1,000 ML IV ONE (10:46)
[2023-08-21] MEDS ORDERED: NALOXONE 0.4 MG/ML 1 ML VIAL IV PRN (11:57)
[2023-08-21] MEDS ORDERED: SIMETHICONE 80 MG CHEWABLE PO SCH (12:00)
--- NOTE | 2023-08-21 12:04 | P.OP ---
Date of Procedure: 08/21/23 Description of Procedure: SURGEON: AJSS JC MD PREOPERATIVE DIAGNOSES: 1. Morbid obesity due to excess calories 2. Body mass index of 46.8, initial 3. Migraine 4. Postoperative nausea or vomiting 5. History of MRSA 6. 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 Obstructive sleep apnea POSTOPERATIVE DIAGNOSES: 1. Morbid obesity due to excess calories 2. Body mass index of 46.8, initial 3. Migraine 4. Postoperative nausea or vomiting 5. History of MRSA 6. 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 Obstructive sleep apnea OPERATION: 1. Robotic assisted da Hao Xi laparoscopic Santiago-en-Y gastric bypass, 150 cm antecolic antegastric Santiago limb, with 25 mm EEA. 2. Intraoperative esophagogastrojejunoscopy. ANESTHESIA: TIVA, GETA and local ESTIMATED BLOOD LOSS: 10 mL SPECIMENS REMOVED: None. COMPLICATIONS: NONE. Operative Findings: 1. Biliopancreatic limb 60 cm 2. Bypass performed using 150 cm santiago limb 3. Jejunojejunostomy and Silva's defects closed using 2-0 V-LOC, green 4. Leak test negative with gastrojejunal anastomosis patent and hemostatic. 5. Reinforcement sutures were placed along the gastrojejunal anastomosis at 3:00, 9:00 and 12:00. 6. No hepatomegaly 7. No intra-abdominal adhesions identified INDICATIONS: Daquan Coronado is a 38-year-old female who comes with lifelong morbid obesity. She comes in with severe gastroesophageal reflux disease.She reports osteoarthritis of the back, hips, knees. She has sleep apnea with snoring. She completed bariatric assessment including cardiac risk assessment, medical risk assessment and psych assessment. She elected for gastric bypass. At height of 5 feet 7 inches, her ideal body weight is 158 pounds. Her highest weight is 340 pounds, body mass index 53.4. Her body mass index is 46.8. She is 141 pounds overweight. She presented at target weight of 280 pounds. A second-generation bariatric consent form was described in detail including the possibility of protein malnutrition, leaks, gastrojejunal stricture, venous thrombosis, need for further surgery for which she demonstrated understanding. Benefits and risks of the procedure were described at length. Informed consent was obtained. DESCRIPTION: The patient was brought into the operating room theater. She was placed supine. She had received heparin subcutaneously for DVT prophylaxis. Additionally Peridex oral solution as an oral decontaminant was placed per anesthesia. After general induction, the abdomen was prepped and draped in standard sterile fashion. Ioban draping was placed along the abdomen. Obregon catheter was avoided. A robotic da Hao Xi system was prepped and primed. Incisions were proposed at 15 cm from the xiphoid. Proposed port sites were marked with indelible marker along the anterior axillary line bilaterally, mid clavicular line bilaterally with each port marked 10 cm from each other. The robotic stapler port was marked for the right midclavicular line including along the left midclavicular line. A 5 mm 0 degrees laparoscopic trocar entry was performed along the left upper quadrant. The abdomen was insufflated to 15 mmHg pressure, which she tolerated well. Diagnostic laparoscopy demonstrated no injury to bowel, viscera, or mesentery. The liver was consistent with her 2-week protein diet without hepatomegaly. An 8 mm camera port was placed left lateral to the umbilicus at the epigastrium, 15 cm distal to the xiphoid. Next, 12-mm robot stapler port was placed along the right mid abdomen. An 12 mm port was exchanged along the left upper quadrant. An 8 mm port was placed on the left lateral abdominal wall under direct visualization Please note that the ports were placed 18 to 20 cm away from the target anatomy of the stomach. Care was taken to check that each robotic arm was safely away from collision with the bed or the patient. At the epigastrium, a medium sized Christian liver retractor was placed under direct visualization with the Iron Organic Search Lead placed under the right shoulder of the patient. The patient was repositioned in reverse Trendelenburg position at 25-degrees after lowering the bed. The robot was docked over the patient. Using grasper for arm 3, a grasper for arm 1, including vessel sealer for arm 4, the robotic system was docked and primed as described. Instruments were interchanged by the railway yard assistant including endoscissors, the needle ross carrier driver, and stapler. I had sat at the console. Next, the transverse mesocolon was reflected into the upper abdomen for the jejunojejunostomy portion of the case. The ligament of Treitz was identified and measured 50 cm antegrade and marked using 3-0 Silk. The jejunum was divided at the 50 cm point using 60-mm blue loads above the suture measurement. The biliopancreatic limb was held in place. The Santiago limb was measured 100 cm in an antegrade fashion to avoid tension along the proposed gastrojejunal anastomosis. At 100 cm along the anti-mesenteric border of the Santiago limb, a jejunojejunostomy was proposed whereby enterotomies were created along the biliopancreatic limb including the Santiago limb using a Bovie cautery. A stay suture of 3-0 Slik was chris kathy to align and create the anastomosis. The enterotomies along the anti- mesenteric borders were created followed by unidirectional fire from the patient's right side using 60 mm white loads Smart technology robotic stapler. The jejunojejunostomy was found to be hemostatic. The enterotomy was closed after horizontal mattress stitch of 3-0 silk used to elevate the enterotomy followed by closure with the robotic stapler blue load. The jejunal limb was temporarily tacked along the left upper quadrant. Attention was now brought to the creation of the gastrojejunostomy. Along the lesser curvature of the stomach, dissection was made along the retrogastric space to allow first firing of the robotic staple. Total of two luz of green loads and blue loads of 60 mm staplers were used to divide the stomach to create the gastric pouch. The patient was then prepared for placement of a Orvil. A 25-mm Orvil was selected for placement by the nurse quantitative analyst marketing. The Orvil tubing was placed anterior to the staple line of the gastric pouch and brought out through the left inferior lateral port. I re-scrubbed into the case. The robotic arms were temporarily undocked. The Orvil was then carefully and successfully navigated with the help of the nurse quantitative analyst marketing into the gastric pouch. The sutures were identified and divided. The tubing was from the 25 mm anvil. As the Orvil had been placed, the jejunal limb was brought proximally into the upper abdomen. No torsion was found upon the Santiago limb. No tension was identified as the limb was brought along the upper abdomen. The jejunal limb was previously opened using hook cautery. The 25-mm EEA stapler was brought through the left anterior lateral port site from the left side. The EEA stapler was brought through the open jejunal limb and its needle was deployed at the antimesenteric border where the anvil were mated for approximately 1 minute upon firing. The stapler was removed after irrigating the shaft of the instrument with warm normal saline. Donuts were found to be intact and on both sides. The da Hao Xi robot arms were then re-docked. I sat at the console. The open jejunal limb defect was closed using 60 mm blue loads after releasing any tension from the blind jejunal limb. No redundancy was present for jejunal limb. The transverse mesocolon was divided for the santiago limb. Reinforcement sutures were placed along the gastrojejunal anastomosis and placed along the 3:00, 9:00, 12:00 o'clock position using 3-0 Vicryl. The Silva and jejunojejunostomy mesenteric defect was closed using 2-0 V LOC, green. I then went to the head of the bed to perform the esophagogastrojejunoscopy and a leak test. An Olympus gastroscope was passed alongthe posterior oropharynx which was unremarkable for any injury to the vocal cords. The scope was passed down to the proximal portion of the pouch, whereby no active bleeding was encountered. Excellent visualization of the gastrojejunostomy anastomosis, including the Santiago limb was encountered with endoscopic image obtained. The anastomosis was found to be patent without active bleeding. Residual blood was suctioned from the gastric pouch. The gastrointestinal tract was desufflated. No evidence of intraoperative leak was encountered as the gastric pouch and anastomosis were submerged under normal saline solution. The robot was then undocked. I then went back to the bedside of the patient, whereby with coordinated effort of the railway yard assistant, irrigation was aspirated from the upper abdominal cavity. Tisseel was placed circumferentially over the anastomosis of the gastrojejunostomy. The fascial defect of the EEA stapler was closed using Barney Nino and 0 Vicryl. All instruments and pneumoperitoneum were evacuated from the abdominal cavity. The port correlating with the EEA stapler device was cleansed with normal saline solution and hydrogen peroxide. The rest of incisions were reapproximated using 4-0 Monocryl in an interrupted subcuticular fashion. Local anesthetic was infiltrated along the skin for postop analgesia. Liquid glue was applied to the skin. OptiFoam dressing was placed along the EEA stapler site. At the end of the procedure, needle, sponge and instrument count had been verified correct by the surgical instruments inspector. The patient had tolerated the procedure well and was extubated and taken to the postanesthesia unit in stable condition.
[2023-08-21] MEDS: fentaNYL (PF) 50 MCG/ML 2 ML AMP IV PRN (12:12)
[2023-08-21] MEDS: ACETAMINOPHEN IV (For NPO) 1,000 MG in EMPTY BAG 1 BAG IVPB STA (14:00)
[2023-08-21] MEDS: droPERidol 5 MG/2 ML VIAL IVP ONE (14:39)
[2023-08-21] MEDS: ACETAMINOPHEN IV (For NPO) 1,000 MG in EMPTY BAG 1 BAG IVPB SCH (14:39)
[2023-08-21] MEDS: ONDANSETRON 4 MG/2 ML VIAL IVP SCH (15:53)
[2023-08-21] MEDS: 0.9% NACL WITH KCL 20 MEQ/L 1,000 ML IV SCH (15:54)
[2023-08-21] MEDS: ceFAZolin 3 GM in SODIUM CHLORIDE 0.9% 100 ML IVPB SCH (15:54)
[2023-08-21] MEDS: ALBUTEROL NEBULIZED 2.5 MG/3 ML INHALATION SCH (16:32)
[2023-08-21] MEDS: fentaNYL PCA 500 MCG/50 ML BAG IV SCH (16:42)
[2023-08-21] MEDS: SIMETHICONE 80 MG CHEWABLE PO SCH (17:23)
[2023-08-21] MEDS: METOCLOPRAMIDE 5 MG/ML 2 ML VIAL IVP SCH (17:24)
[2023-08-21] MEDS: HEPARIN SODIUM,PORCINE 5,000 UNIT/ML 1 ML VIAL SQ SCH (21:26)
[2023-08-21] MEDS: PANTOPRAZOLE 40 MG/10 ML VIAL IV SCH (21:27)
[2023-08-22] MEDS ORDERED: 0.9% NACL WITH KCL 20 MEQ/L 1,000 ML IV SCH (08:00)
[2023-08-22 08:57] LABS: Basophils # (A) 0.03 X 10*3/uL (0.00-0.10); Basophils % (A) 0.2 %; Eosinophils # (A) 0 X 10*3/uL (0.04-0.35); Eosinophils % (A) 0 %; HGB 10.1 g/dL (12.0-15.0); Lymphocytes # (A) 1.68 X 10*3/uL (0.90-5.00); Lymphocytes % (A) 10.5 %; MCH 32.2 pg (27.0-32.0); MCHC 33.7 g/dL (32.0-37.0); MCV 95.5 FL (80.0-97.0); Mean Platelet Volume 10.5 FL (9.5-12.2); Monocytes # (A) 1.17 X 10*3/uL (0.20-1.00); Monocytes % (A) 7.3 %; NRBC Per 100 WBC 0 X 10*3/uL (0.00-0.01); Neutrophils # (A) 13.05 X 10*3/uL (1.80-7.70); Neutrophils % (A) 81.5 %; Platelet Count 296 X 10*3/uL (140-440); RBC 3.14 X 10*6/uL (4.10-5.20); RDW 13.4 % (11.5-14.5); WBC 16.01 X 10*3/uL (4.50-10.00)
[2023-08-22 09:11] LABS: Blood Urea Nitrogen 20.2 mg/dL (9.0-27.0); Calcium 7.8 mg/dL (8.7-10.3); Carbon Dioxide 19.6 mmol/L (21.6-31.8); Chloride 106 mmol/L (96-109); Phosphorus 3.2 mg/dL (2.4-5.1); Potassium 4.8 mmol/L (3.5-5.5); Sodium 137 mmol/L (135-145)
--- NOTE | 2023-08-22 11:02 | FL ---
Single contrast upper GI EXAMINATION TYPE: FL UGI DATE OF EXAM: 08/22/2023 10:50 AM CLINICAL HISTORY: Status post Manuel-en-Y gastric bypass COMPARISON: NONE Contrast: Omnipaque 350 50 mL The patient ingested contrast without difficulty or delay. Noted are postsurgical changes of Manuel-en -Y gastric bypass. There is no evidence for leak or obstruction. Drainage catheter is in place. IMPRESSION: Post-surgical change of Manuel-en-Y gastric bypass without evidence for obstruction or luis k at this point in time.
[2023-08-22] MEDS: SODIUM CHLORIDE 0.9% 2,000 ML IV ONE (11:26)
[2023-08-22 13:13] VITALS: BMI 43.9
[2023-08-22 13:39] VITALS: BP 136/85; PULSE 84; RESP 15; TEMP 98.2
--- NOTE | 2023-08-22 14:03 | P.DS ---
Providers Date of admission: 08/21/23 07:45 Expected date of discharge: 08/22/23 Attending physician: Krystin Trujillo Consults: 08/21/23 08:44 Consult Physician Routine Consulting Provider: [facility] Consult Reason/Comments: TIVA for gastric bypass Do you want consulting provider notified?: Yes Primary care physician: Kiara Burrows [facility] Course: Discharge diagnosis 1. Morbid obesity due to excess calories 2. Body mass index of 46.8, initial 3. Migraine 4. Postoperative nausea or vomiting 5. History of MRSA 6. 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 Obstructive sleep apnea 10. Leukocytosis likely secondary to the [facility] course Daquan Coronado is a 38-year-old female who comes with lifelong morbid obesity. She is status post Robotic assisted da Hao Xi laparoscopic Manuel-en-Y gastric bypass. She tolerated surgery well. Her pain is controlled. Upper GI shows no evidence of leak or obstruction. She is tolerating diet. She has been up and ambulating. She denies any difficulty urinating. She is afebrile. She is stable for discharge. Physician Forest Supervisor note has been reviewed by physician. Signing provider agrees with the documented findings, assessment, and plan of care. Patient Condition at Discharge: Stable Plan - Discharge Summary Discharge Rx Participant: Yes New Discharge Prescriptions: New Simethicone 40 mg/0.6 ml Drops [Mylicon Drops] 40 mg PO PCHS PRN #30 ml PRN Reason: Gas Omeprazole [PriLOSEC] 40 mg PO DAILY #90 cap Ondansetron Odt [Zofran Odt] 4 mg PO Q8HR PRN #9 tab PRN Reason: Nausea Acetaminophen Tab [Tylenol] 1,000 mg PO Q6HR PRN #30 tablet PRN Reason: Pain bisacodyL [Dulcolax] 5 mg PO DAILY PRN #10 tab PRN Reason: Constipation Discontinued Ergocalciferol [Vitamin D2 (1250 Mcg = 34346 Iu)] 1,250 mcg PO WEEKLY #20 cap Multivitamins, Thera [Multivitamin (formulary)] 1 tab PO DAILY Discharge Medication List Acetaminophen Tab [Tylenol] 1,000 mg PO Q6HR PRN #30 tablet 08/22/23 [Rx] Omeprazole [PriLOSEC] 40 mg PO DAILY #90 cap 06/11/24 [Rx] Ondansetron Odt [Zofran Odt] 4 mg PO Q8HR PRN #9 tab 08/22/23 [Rx] Simethicone 40 mg/0.6 ml Drops [Mylicon Drops] 40 mg PO PCHS PRN #30 ml 08/22/23 [Rx] bisacodyL [Dulcolax] 5 mg PO DAILY PRN #10 tab 08/22/23 [Rx] [facility]Ref[facility] [place] [facility] [place] [facility]23 9:00 am Activity/Diet/Wound Care/Special Instructions: Liquid diet only for 2 weeks until 09/04/23 No lifting over 4 pounds in 4 weeks, until 09/19/23 You May Shower. No soaking in bath tubs for 2 weeks Please notify your surgeon if you develop nausea and vomiting including new onset of abdominal pain. Continue to use incentive spirometry to prevent pneumonias. Please continue to ambulate at home to prevent blood clots in legs. Follow-up at the bariatric center. May shower. Dressings to be discontinued by surgeon in the office. Drink 64 oz of fluid daily. Start protein shakes on . Notify bariatric center for temp over 101.0, increased pain, drainage from incisions. No straws or carbonated beverages. Liquid diet only. Sugar content should be less than 6 g to avoid dumping syndrome. Take MOM for constipation. CRUSH, OPEN, OR CUT TABLETS LARGER THAN A SIZE OF A TIC TAC Do not take any vitamins until seen by surgeon due to increased bleeding risk Discharge Disposition: HOME SELF-CARE
[2023-08-23] MEDS ORDERED: bisacodyL 5 MG TABLET.DR PO PRN (08:00)
[2023-08-28] MEDS ORDERED: ERGOCALCIFEROL 1,250 MCG (50,000 IU) CAPSULE PO SCH (09:00)
== END 2023-08-22 14:49 | disposition home or self-care (01) | DRG 403 ==
LOC: 2ORMAIN 07:45 → 4SSUR 13:59
PROVIDERS: ADMIT Surgery Plastic and Reconstructive Surgery; ATTEND Surgery Plastic and Reconstructive Surgery
PROC: 8E0W4CZ Robotic Assisted Procedure of Trunk Region, Percutaneous Endoscopic Approach (ICD-10-PCS; principal; 2023-08-21 09:00)
PROC: 0DJ08ZZ Inspection of Upper Intestinal Tract, Via Natural or Artificial Opening Endoscopic (ICD-10-PCS; principal; 2023-08-21 09:00)
PROC: 0D164ZA Bypass Stomach to Jejunum, Percutaneous Endoscopic Approach (ICD-10-PCS; principal; 2023-08-21 09:00)
DX: E66.01 Morbid (severe) obesity due to excess calories (principal); Z68.42 Body mass index [BMI] 45.0-49.9, adult; K21.9 Gastro-esophageal reflux disease without esophagitis; M16.0 Bilateral primary osteoarthritis of hip; M17.0 Bilateral primary osteoarthritis of knee; D72.829 Elevated white blood cell count, unspecified; M47.819 Spondylosis without myelopathy or radiculopathy, site unspecified; T38.0X5A Adverse effect of glucocorticoids and synthetic analogues, initial encounter; G47.33 Obstructive sleep apnea (adult) (pediatric); G43.909 Migraine, unspecified, not intractable, without status migrainosus; Z86.14 Personal history of Methicillin resistant Staphylococcus aureus infection; Z28.310 Unvaccinated for COVID-19; Z88.5 Allergy status to narcotic agent; Z87.891 Personal history of nicotine dependence; Z88.8 Allergy status to other drugs, medicaments and biological substances; Z88.6 Allergy status to analgesic agent
CPT/HCPCS: 74240; 80051; 81025; 82310; 82565; 83735; 84100; 84520; 85025; 94640; 94760

== ENCOUNTER → 2023-08-25 | Outpatient (CLI) | payer OTHER ==
[2023-08-25 10:18] VITALS: BP 139/83; PULSE 70; RESP 14; TEMP 98.1; BMI 44.5
== END ==
LOC: BARWHC3 08:50
PROVIDERS: ATTEND Surgery Plastic and Reconstructive Surgery
DX: E66.1 Drug-induced obesity (principal); Z68.41 Body mass index [BMI] 40.0-44.9, adult; Z88.5 Allergy status to narcotic agent; Z88.8 Allergy status to other drugs, medicaments and biological substances; Z87.891 Personal history of nicotine dependence
CPT/HCPCS: 99211

== ENCOUNTER → 2024-02-28 | Outpatient (CLI) | payer OTHER ==
[2024-02-28 13:46] VITALS: BP 120/79; PULSE 78; RESP 16; TEMP 97.8
--- NOTE | 2024-02-28 14:26 | P.BASOAP ---
Subjective Progress Note Date: 02/28/24 She lost 80 pounds. She got omeprazole. Prescription given. May come off omeprazole. NO issues. Hair is stop failing out. Getting 60 grams of protein daily. She does not drink milk. She uses [facility]. Labs from August described. She has excess. Has skin problems has redness. Has lower back pain and pulling. Troubles with grooming and wearing clothes. Objective - Vital Signs Vital signs: Vital Signs Temp 97.8 F 02/28/24 13:42 Pulse 78 02/28/24 13:42 Resp 16 02/28/24 13:42 BP 120/79 02/28/24 13:42 Pulse Ox FiO2 Intake & Output 02/27/24 02/28/24 02/28/24 18:59 06:59 18:59 Weight 99.337 kg Assessment/Plan Plan: Date: 02/28/24 Initial Weight: 135.624 kg Initial BMI: Current Weight: 99.337 kg Current BMI: Type of Surgery: Total Volume in Band: Previous Volume: Volume Removed: Volume Added: Band Size:
[2024-02-28 15:34] LABS: INR 0.9 (<1.2)
[2024-02-28 18:34] LABS: HCT 36.5 % (37.2-46.3); HGB 11.6 g/dL (12.0-15.0); MCH 30.9 pg (27.0-32.0); MCHC 31.8 g/dL (32.0-37.0); MCV 97.3 FL (80.0-97.0); Mean Platelet Volume 10.8 FL (9.5-12.2); NRBC Per 100 WBC 0 X 10*3/uL (0.00-0.01); Platelet Count 338 X 10*3/uL (140-440); RBC 3.75 X 10*6/uL (4.10-5.20); RDW 13.1 % (11.5-14.5); WBC 7.21 X 10*3/uL (4.50-10.00)
[2024-02-28 19:44] LABS: Prealbumin 18.6 mg/dL (18.0-42.0)
[2024-02-28 20:30] LABS: % Iron Saturation 19.21 (12.00-45.00); ALT 32 U/L (8-44); AST 34 U/L (13-35); Albumin 4.2 g/dL (3.8-4.9); Alkaline Phosphatase 72 U/L (41-126); Blood Urea Nitrogen 24.3 mg/dL (9.0-27.0); Calcium 9.2 mg/dL (8.7-10.3); Carbon Dioxide 24.9 mmol/L (21.6-31.8); Chloride 104 mmol/L (96-109); Chol/HDL Ratio 2.54 Ratio; Ferritin 70.8 ng/mL (10.0-291.0); Glucose 87 mg/dL (70-110); Iron 58 UG/DL (50-170); LDL Cholesterol,Calculated 78.9 mg/dL (0.0-131.0); Magnesium 2.1 mg/dL (1.5-2.4); Phosphorus 3.4 mg/dL (2.4-5.1); Potassium 4.1 mmol/L (3.5-5.5); Sodium 141 mmol/L (135-145); Total Bilirubin 0.3 mg/dL (0.3-1.2); Total Iron Binding Capacity 302 UG/DL (228-460); Total Protein 7.2 g/dL (6.2-8.2)
[2024-02-29 13:00] LABS: Zinc, Serum 63 ug/dL (60-130)
[2024-03-01 06:41] LABS: Vitamin A 46 ug/dL (38-106)
[2024-03-01 09:43] LABS: Vit B1(Thiamine) 52 ug/L (38-122)
== END ==
LOC: BARWHC3 13:12
PROVIDERS: ATTEND Surgery Plastic and Reconstructive Surgery
DX: E66.01 Morbid (severe) obesity due to excess calories (principal); E89.1 Postprocedural hypoinsulinemia; D50.8 Other iron deficiency anemias; D50.9 Iron deficiency anemia, unspecified; K91.2 Postsurgical malabsorption, not elsewhere classified; E44.0 Moderate protein-calorie malnutrition; E45 Retarded development following protein-calorie malnutrition; E55.9 Vitamin D deficiency, unspecified; K74.1 Hepatic sclerosis; N19 Unspecified kidney failure; T56.894A Toxic effect of other metals, undetermined, initial encounter; K50.90 Crohn's disease, unspecified, without complications; Z68.34 Body mass index [BMI] 34.0-34.9, adult; Z88.5 Allergy status to narcotic agent; Z88.6 Allergy status to analgesic agent; Z87.891 Personal history of nicotine dependence
CPT/HCPCS: 84255; 84134; 84425; 80061; 80053; 82607; 82728; 82525; 82746; 83540; 83550; 83735; 84100; 84443; 84590; 84630; 85027; 85610; 85730; 82306; 83970; G0463; 99211

== ENCOUNTER 2024-05-09 08:06 | Emergency (ER) | payer OTHER ==
[2024-05-09 08:17] VITALS: RESP 18
[2024-05-09 08:59] LABS: Basophils % (A) 0 %; Eosinophils # (A) 0.1 k/uL (0-0.7); Eosinophils % (A) 2 %; HCT 36.1 % (34.0-46.0); HGB 11.6 gm/dL (11.4-16.0); Lymphocytes # (A) 1.5 k/uL (1.0-4.8); Lymphocytes % (A) 25 %; MCH 31.5 pg (25.0-35.0); MCHC 32.1 g/dL (31.0-37.0); Mean Platelet Volume 7.4; Monocytes # (A) 0.5 k/uL (0-1.0); Monocytes % (A) 8 %; Neutrophils # (A) 3.7 k/uL (1.3-7.7); Neutrophils % (A) 62 %; Platelet Count 275 k/uL (150-450); RBC 3.69 m/uL (3.80-5.40); WBC 5.9 k/uL (3.8-10.6)
[2024-05-09] MEDS: SODIUM CHLORIDE 0.9% 2,000 ML IV STA (08:59)
[2024-05-09 09:40] LABS: ALT 40 U/L (4-34); AST 36 U/L (14-36); African American GFR (CKD) 79 (>60 ml/min/1.73 sqM); Albumin 4.1 g/dL (3.5-5.0); Alkaline Phosphatase 72 U/L (38-126); Anion Gap 11 mmol/L; Blood Urea Nitrogen 28 mg/dL (7-17); Calcium 9.1 mg/dL (8.4-10.2); Carbon Dioxide 21 mmol/L (22-30); Chloride 105 mmol/L (98-107); Glucose 88 mg/dL (74-99); Lipase 68 U/L (23-300); Magnesium 1.8 mg/dL (1.6-2.3); Non-African American GFR(CKD) 69 (>60 ml/min/1.73 sqM); Potassium 4.2 mmol/L (3.5-5.1); Sodium 137 mmol/L (137-145); Total Bilirubin 0.5 mg/dL (0.2-1.3); Total Protein 7.3 g/dL (6.3-8.2)
[2024-05-09 09:42] LABS: Appearance,Urine Cloudy (Clear); Bacteria,Urine Rare /hpf; Bilirubin,Urine Negative (Negative); Blood,Urine Negative (Negative); Color,Urine Yellow; Glucose,Urine (UA) Negative (Negative); Hyaline Casts,Urine 22 /lpf (0-2); Ketones,Urine 1+ (Negative); Leukocyte Esterase,Urine Negative (Negative); Mucus,Urine Many /hpf; Nitrite,Urine Negative (Negative); Protein,Urine 1+ (Negative); RBC,Urine 2 /hpf (0-5); Squamous Epithelial Cell,Urine 13 /hpf (0-4); WBC,Urine 4 /hpf (0-5)
[2024-05-09] MEDS: DIPHENOX-ATROP 2.5-0.025 MG 1 EACH TAB PO STA (10:05)
--- NOTE | 2024-05-09 10:51 | ED ---
Nausea/Vomiting/Diarrhea HPI - General Chief complaint: Nausea/Vomiting/Diarrhea Stated complaint: diarrhea Time Seen by Provider: 05/09/24 08:20 Source: patient, RN notes reviewed Mode of arrival: ambulatory Limitations: no limitations - History of Present Illness Initial comments: 39-year-old female presents emergency department with chief complaint of dehydration, diarrhea. She states she has had persistent diarrhea for the last 4 days she denies any recent antibiotic use. She states that she had a gastric bypass in the past has no complaints of localized abdominal pain denies fevers no chest pain she states she is concerned about dehydration. Patient denies any dysuria and no melanotic stools no hematochezia - Related Data Home Medications Medication Instructions Recorded Confirmed Biotin 2,500 mcg PO DAILY 11/22/23 02/28/24 Multivitamin [Multivitamins Adult 1 tab PO DAILY 02/28/24 02/28/24 Gummies] Previous Rx's Medication Instructions Recorded Acetaminophen Tab [Tylenol] 1,000 mg PO Q6HR PRN #30 tablet 08/22/23 Omeprazole [PriLOSEC] 40 mg PO DAILY #90 cap 08/22/23 Nystatin 100,000 Unit/gm Powd 1 applic TOPICAL BID #60 gm 02/28/24 [Mycostatin Powder] Omeprazole [PriLOSEC] 40 mg PO DAILY #30 cap 02/28/24 Allergies Allergy/AdvReac Type Severity Reaction Status Date / Time codeine Allergy Nausea & Verified 05/09/24 08:17 Vomiting diphenhydramine Allergy Nausea & Verified 05/09/24 08:17 [From Benadryl] Vomiting & panic attacks all pain medicine AdvReac Nausea & Uncoded 05/09/24 08:17 Vomiting Review of Systems ROS Statement: Those systems with pertinent positive or pertinent negative responses have been documented in the HPI. ROS Other: All systems not noted in ROS Statement are negative. Past Medical History Past Medical History: No Reported History Additional Past Medical History / Comment(s): migraines History of Any Multi-Drug Resistant Organisms: MRSA Date of last positivie culture/infection: 2013 MDRO Source:: nose Past Surgical History: Appendectomy, Bariatric Surgery, Section, Cholecystectomy Additional Past Surgical History / Comment(s): D&C,santiago en y Past Anesthesia/Blood Transfusion Reactions: Postoperative Nausea & Vomiting (PONV) Past Psychological History: No Psychological Hx Reported Smoking Status: Former smoker Past Alcohol Use History: None Reported Past Drug Use History: None Reported - Past Family History Mother Additional Family Medical History / Comment(s): Lupus General Exam Limitations: no limitations General appearance: alert, in no apparent distress Head exam: Present: atraumatic, normocephalic, normal inspection Neck exam: Present: normal inspection. Absent: tenderness, meningismus, lymphadenopathy Respiratory exam: Present: normal lung sounds bilaterally. Absent: respiratory distress, wheezes, rales, rhonchi, stridor Cardiovascular Exam: Present: regular rate, normal rhythm, normal heart sounds. Absent: systolic murmur, diastolic murmur, rubs, gallop, clicks GI/Abdominal exam: Present: soft, normal bowel sounds. Absent: distended, tenderness, guarding, rebound, rigid Back exam: Absent: CVA tenderness (R), CVA tenderness (L) Course Vital Signs 05/09/24 05/09/24 08:14 10:37 Temperature 97.8 F Pulse Rate 99 78 Respiratory 18 18 Rate Blood Pressure 123/81 102/68 O2 Sat by Pulse 96 98 Oximetry Medical Decision Making - Medical Decision Making Was pt. sent in by a medical professional or institution (, PA, FURNACE ROOM SUPERVISOR, urgent care, hospital, or shelter...) When possible be specific @ -No Did you speak to anyone other than the patient for history (EMS, parent, family, police, friend...)? What history was obtained from this source @ -No Did you review nursing and triage notes (agree or disagree)? Why? @ -I reviewed and agree with nursing and triage notes Were old charts reviewed (outside hosp., previous admission, EMS record, old EKG, old radiological studies, urgent care reports/EKG's, shelter records)? Report findings @ -No old charts were reviewed Differential Diagnosis (chest pain, altered mental status, abdominal pain women, abdominal pain men, vaginal bleeding, weakness, fever, dyspnea, syncope, headache, dizziness, GI bleed, back pain, seizure, CVA, palpatations, mental health, musculoskeletal)? @ -Differential Abdominal Pain Women: Appendicitis, Cholecystitis, diverticulosis, ischemic bowel, pancreatitis, hepatitis, UTI, gastroenteritis, AAA, incarcerated hernia, bowel obstruction, constipation, inflammatory bowel, hepatitis, peptic ulcer disease, splenic infarction, perforated viscus, vulvitis, ovarian torsion, PID, kidney stone, placenta abruption, this is not meant to be an all-inclusive list EKG interpreted by me (3pts min.). @ -No X-rays interpreted by me (1pt min.). @ -None done CT interpreted by me (1pt min.). @ -None done U/S interpreted by me (1pt. min.). @ -None done What testing was considered but not performed or refused? (CT, X-rays, U/S, labs)? Why? @ -None What meds were considered but not given or refused? Why? @ -None Did you discuss the management of the patient with other professionals (professionals i.e. , PA, FURNACE ROOM SUPERVISOR, lab, RT, psych nurse, social media intern, fourchette sewer, teacher, supervisor dog license officer, case management assistant)? Give summary @ -No Was smoking cessation discussed for >3mins.? @ -No Was critical care preformed (if so, how long)? @ -No Were there social determinants of health that impacted care today? How? (Homelessness, low income, unemployed, alcoholism, drug addiction, transportation, low edu. Level, literacy, decrease access to med. care, residential, rehab)? @ -No Was there de-escalation of care discussed even if they declined (Discuss DNR or withdrawal of care, Hospice)? DNR status @ -No What co-morbidities impacted this encounter? (DM, HTN, Smoking, COPD, CAD, Cancer, CVA, ARF, Chemo, Hep., AIDS, mental health diagnosis, sleep apnea, morbid obesity)? @ -None Was patient admitted / discharged? Hospital course, mention meds given and route, prescriptions, significant lab abnormalities, going to OR and other pertinent info. @ -Discharge patient feels great improved with IV fluid she has no tenderness upon palpation of her abdomen. She has had diarrhea more likely viral. Patient denies any risk factors for C. difficile. She states she feels comfortable discharge and close follow-up return parameters sree. Undiagnosed new problem with uncertain prognosis? @ -No Drug Therapy requiring intensive monitoring for toxicity (Heparin, Nitro, Insulin, Cardizem)? @ -No Were any procedures done? @ -No Diagnosis/symptom? @ -Diarrhea, dehydration Acute, or Chronic, or Acute on Chronic? @ -Acute Uncomplicated (without systemic symptoms) or Complicated (systemic symptoms)? @ -Uncomplicated Side effects of treatment? @ -No Exacerbation, Progression, or Severe Exacerbation? @ -No Poses a threat to life or bodily function? How? (Chest pain, [place], [place], pneumonia, PE, COPD, DKA, ARF, appy, cholecystitis, CVA, Diverticulitis, Homicidal, Suicidal, threat to staff... and all critical care pts) @ -No - Lab Data Result diagrams: 05/09/24 08:51 05/09/24 08:51 Lab Results 05/09/24 05/09/24 05/09/24 Range/Units 08:51 08:51 08:59 WBC 5.9 (3.8-10.6) k/uL RBC 3.69 L (3.80-5.40) m/uL Hgb 11.6 (11.4-16.0) gm/dL Hct 36.1 (34.0-46.0) % MCV 98.0 (80.0-100.0) fL MCH 31.5 (25.0-35.0) pg MCHC 32.1 (31.0-37.0) g/dL RDW 13.0 (11.5-15.5) % Plt Count 275 (150-450) k/uL MPV 7.4 Neutrophils % 62 % Lymphocytes % 25 % Monocytes % 8 % Eosinophils % 2 % Basophils % 0 % Neutrophils # 3.7 (1.3-7.7) k/uL Lymphocytes # 1.5 (1.0-4.8) k/uL Monocytes # 0.5 (0-1.0) k/uL Eosinophils # 0.1 (0-0.7) k/uL Basophils # 0.0 (0-0.2) k/uL Sodium 137 (137-145) mmol/L Potassium 4.2 (3.5-5.1) mmol/L Chloride 105 (98-107) mmol/L Carbon Dioxide 21 L (22-30) mmol/L Anion Gap 11 mmol/L BUN 28 H (7-17) mg/dL Creatinine 1.04 (0.52-1.04) mg/dL Est GFR (CKD-EPI)AfAm 79 (>60 ml/min/1.73 sqM) Est GFR (CKD-EPI)NonAf 69 (>60 ml/min/1.73 sqM) Glucose 88 (74-99) mg/dL Calcium 9.1 (8.4-10.2) mg/dL Magnesium 1.8 (1.6-2.3) mg/dL Total Bilirubin 0.5 (0.2-1.3) mg/dL AST 36 (14-36) U/L ALT 40 H (4-34) U/L Alkaline Phosphatase 72 (38-126) U/L Total Protein 7.3 (6.3-8.2) g/dL Albumin 4.1 (3.5-5.0) g/dL Lipase 68 (23-300) U/L Urine Color Yellow Urine Appearance Cloudy H (Clear) Urine pH 6.0 (5.0-8.0) Ur Specific [place] 1.040 H (1.001-1.035) Urine Protein 1+ H (Negative) Urine Glucose (UA) Negative (Negative) Urine Ketones 1+ H (Negative) Urine Blood Negative (Negative) Urine Nitrite Negative (Negative) Urine Bilirubin Negative (Negative) Urine Urobilinogen 2.0 (<2.0) mg/dL Ur Leukocyte Esterase Negative (Negative) Urine RBC 2 (0-5) /hpf Urine WBC 4 (0-5) /hpf Ur Squamous Epith Cells 13 H (0-4) /hpf Urine Bacteria Rare H (None) /hpf Hyaline Casts 22 H (0-2) /lpf Urine Mucus Many H (None) /hpf Disposition Clinical Impression: Diarrhea, Dehydration Disposition: HOME SELF-CARE Condition: Stable Instructions (If sedation given, give patient instructions): Acute Diarrhea (ED) Additional Instructions: Please return to the Emergency Department if symptoms worsen or any other concerns. Is patient prescribed a controlled substance at d/c from ED?: No Referrals: Kiara Burrows MD [Primary Care Provider] - 1-2 days Time of Disposition: 10:50
[2024-05-09] MEDS: DIPHENOX-ATROP STARTER PACK 8 TAB BTL PO STA (11:08)
[2024-05-09 11:12] VITALS: BP 108/73; PULSE 85; TEMP 98.2
== END 2024-05-09 11:12 | disposition home or self-care (01) ==
LOC: EC 08:06
DX: R19.7 Diarrhea, unspecified (principal); E86.0 Dehydration; Z88.5 Allergy status to narcotic agent; Z88.6 Allergy status to analgesic agent; Z88.8 Allergy status to other drugs, medicaments and biological substances; Z87.891 Personal history of nicotine dependence
CPT/HCPCS: 36415; 80053; 81001; 83690; 83735; 85025; 96360; 99284

== ENCOUNTER → 2024-05-29 | Outpatient (CLI) | payer OTHER ==
[2024-05-29 14:15] VITALS: BP 113/75; PULSE 83; RESP 16; TEMP 98.8; BMI 32.1
--- NOTE | 2024-05-29 14:53 | P.BASOAP ---
Subjective Progress Note Date: 05/29/24 She was 300 pounds. Protein is 60+ grams. She is getting 90 g protein. NO dysphagia. NO GERD. NO constipation. NO new belly pain. Water daily 60 oz. Plan for labs, GEt vitamin d. 100 oz, Objective - Vital Signs Vital signs: Vital Signs Temp 98.8 F 05/29/24 14:10 Pulse 83 05/29/24 14:10 Resp 16 05/29/24 14:10 BP 113/75 05/29/24 14:10 Pulse Ox FiO2 Intake & Output 05/28/24 05/29/24 05/29/24 18:59 06:59 18:59 Weight 92.986 kg Assessment/Plan Plan: Date: 05/29/24 Initial Weight: 135.624 kg Initial BMI: 46.8 Current Weight: 92.986 kg Current BMI: 32.1 Type of Surgery: Total Volume in Band: Previous Volume: Volume Removed: Volume Added: Band Size:
[2024-05-29 16:00] LABS: INR 0.9 (<1.2); Partial Thromboplastin Time 25.2 sec (22.0-30.0); Prothrombin Time 10.3 sec (10.0-12.5)
[2024-05-29 21:05] LABS: Prealbumin 14.1 mg/dL (18.0-42.0)
[2024-05-29 21:28] LABS: % Iron Saturation 14.29 (12.00-45.00); BUN/Creat Ratio 23.33 Ratio (12.00-20.00); Chloride 105 mmol/L (96-109); Chol/HDL Ratio 2.38 Ratio; Glucose 88 mg/dL (70-110); Iron 41 UG/DL (50-170); LDL Cholesterol,Calculated 62.8 mg/dL (0.0-131.0); Magnesium 2.1 mg/dL (1.5-2.4); Phosphorus 3.3 mg/dL (2.4-5.1); Potassium 3.9 mmol/L (3.5-5.5); Sodium 141 mmol/L (135-145); Total Iron Binding Capacity 287 UG/DL (228-460)
[2024-05-29 21:29] LABS: ALT 28 U/L (8-44); AST 31 U/L (13-35); Albumin 4.1 g/dL (3.8-4.9); Albumin/Globulin Ratio 1.32 Ratio (1.60-3.17); Alkaline Phosphatase 84 U/L (41-126); Carbon Dioxide 26.2 mmol/L (21.6-31.8); Ferritin 61.2 ng/mL (10.0-291.0); Globulin 3.1 g/dL (1.6-3.3); Total Bilirubin 0.3 mg/dL (0.3-1.2); Total Protein 7.2 g/dL (6.2-8.2)
[2024-05-29 21:37] LABS: HCT 31.5 % (37.2-46.3); HGB 10.3 g/dL (12.0-15.0); MCH 32.3 pg (27.0-32.0); MCHC 32.7 g/dL (32.0-37.0); MCV 98.7 FL (80.0-97.0); Mean Platelet Volume 10.8 FL (9.5-12.2); NRBC Per 100 WBC 0 X 10*3/uL (0.00-0.01); Platelet Count 363 X 10*3/uL (140-440); RBC 3.19 X 10*6/uL (4.10-5.20); RDW 13.5 % (11.5-14.5); WBC 7.89 X 10*3/uL (4.50-10.00)
[2024-05-31 06:42] LABS: Vit B1(Thiamine) 49 ug/L (38-122)
[2024-05-31 06:54] LABS: Vitamin A 37 ug/dL (38-106)
== END ==
LOC: BARWHC3 13:25
PROVIDERS: ATTEND Surgery Plastic and Reconstructive Surgery
DX: E66.01 Morbid (severe) obesity due to excess calories (principal); Z68.32 Body mass index [BMI] 32.0-32.9, adult; Z87.891 Personal history of nicotine dependence; Z88.5 Allergy status to narcotic agent; Z88.8 Allergy status to other drugs, medicaments and biological substances
CPT/HCPCS: 84255; 84134; 84425; 80061; 80053; 82607; 82728; 82525; 82746; 83540; 83550; 83735; 84100; 84443; 84590; 84630; 85027; 85610; 85730; 82306; 83970; 83036; G0463; 99211

== ENCOUNTER → 2024-08-21 | Outpatient (CLI) | payer OTHER ==
[2024-08-21 13:58] VITALS: BP 107/70; PULSE 70; RESP 16; TEMP 98.6; BMI 30.7
--- NOTE | 2024-08-21 14:28 | P.BASOAP ---
Subjective Progress Note Date: 08/21/24 Anniversary from gastric bypass. Lost 100 pounds. Okay skin. Has back pain. Nystatin. Has skin folder. Has trouble with grooming. Needs skin removal. Needs nystatin. Needs labs. Emergency movements. Objective - Vital Signs Vital signs: Vital Signs Temp 98.6 F 08/21/24 13:54 Pulse 70 08/21/24 13:54 Resp 16 08/21/24 13:54 BP 107/70 08/21/24 13:54 Pulse Ox FiO2 Intake & Output 08/20/24 08/21/24 08/21/24 18:59 06:59 18:59 Weight 88.904 kg Assessment/Plan Plan: Date: 08/21/24 Initial Weight: 135.624 kg Initial BMI: 46.8 Current Weight: 88.904 kg Current BMI: 30.7 Type of Surgery: Total Volume in Band: Previous Volume: Volume Removed: Volume Added: Band Size:
== END ==
LOC: BARWHC3 13:42
PROVIDERS: ATTEND Surgery Plastic and Reconstructive Surgery
DX: E66.01 Morbid (severe) obesity due to excess calories (principal); Z87.891 Personal history of nicotine dependence; Z88.8 Allergy status to other drugs, medicaments and biological substances; Z88.5 Allergy status to narcotic agent; Z68.30 Body mass index [BMI] 30.0-30.9, adult
CPT/HCPCS: 99211